=== PATIENT | male | born 1950 | race Caucasian/White ===

== ENCOUNTER → 2017-07-05 | Outpatient (CLI) | payer OTHER ==
[~2017-07-05] MED LIST: ALBIPROI INH; ALBU3IS INH; ALBU90OI INH; AMLO5 PO; ATOR10 PO; AZIT250 PO; Advair Hfa 230-12 GM; Albuterol2.5 MG/0.5 INH; BENZ100A; BENZ100A PO; BUME1; BUME1 PO; BUME2 PO; CLON.1 PO; CODACE30; CODACE30 PO; CYCL10 PO; DIGO.25; DIGO.25 PO; DOCU100 PO; DOXY100 PO; DULO30; DULO60 PO; Desyrel PO; ELIQUIS5 MG PO; FISH1000 PO; FLUSAL2505; FLUSAL2505 INH; FOSI10; FURO80; FURO80 PO; Ferrous Sulfat325 MG PO; GABA100 PO; GABA300 PO; GLIP10 PO; GLIP5ER PO; HYDACE5; HYDACE5 PO; HYDACE5325 PO; HYDR1TAB94 PO; LEVFLO500 PO; LEVO750 PO; LISI20 PO; LISINOPRIL; LOVASTA; Levaquin500 MG PO; MELO7.5; MELO7.5 PO; METF500; METF500 PO; METF500C PO; METH10; METH10 PO; METH5 PO; METO10 PO; METO100 PO; METO100ER; MONT10T; MONT10T PO; MORP15ER PO; Methadone PO; Metoprolol Tar100 MG PO; Mucinex600 MG PO; NEOPOLHYDS OT; NIFE90ER PO; NYST100SU MT; Neurontin300 MG PO; OMEG1CAP30 PO; OXYC5 PO; POTCHL10ER; POTCHL10ER PO; PRED10 PO; PRED20 PO; PROC10 PO; PROM25 PO; PROM25S PR; Prinivil10 MG PO; ROFE25; SERT100; TAMS.4ER PO; TIOT18 INH; TRAM50 PO; TRAZ100; TRAZ100 PO; TRAZ150T57 PO; VERA120; WARF3; WARF3 PO; WARF4 PO; Zithromax250 MG PO; Zofran Odt8 MG SL
[2017-07-05 14:13] LABS: Albumin, Blood 3.3 g/dL (3.4-5.0); Anion Gap 7 mmol/L (6-16); Blood Urea Nitrogen 27 mg/dL (8-24); Bun/Creatinine Ratio 24.5 (12.0-20.0); CO2, Blood 31 mmol/L (21-32); Calcium, Blood 8.6 mg/dL (8.5-10.1); Chloride, Blood 100 mmol/L (98-108); Glomerular Filtration Rate >60 (60-); Glucose, Blood 240 mg/dL (70-99); Phosphorus, Blood 3.1 mg/dL (2.5-4.9); Potassium, Blood 4.7 mmol/L (3.5-5.5); Sodium, Blood 138 mmol/L (136-145)
== END | disposition home or self-care (01) ==
LOC: LAB 13:29
PROVIDERS: Internal Medicine Nephrology
DX: N18.3 Chronic kidney disease, stage 3 (moderate) (principal); D63.1 Anemia in chronic kidney disease
CPT/HCPCS: 80069; 85018

== ENCOUNTER 2017-07-22 09:13 | Emergency (ER) | payer OTHER ==
[~2017-07-22] VITALS: Ht 180.3 cm; Wt 136.1 kg
[~2017-07-22 09:13] MED LIST changes: -Advair Hfa 230-12 GM; -Ferrous Sulfat325 MG PO; -OXYC5 PO; -Zofran Odt8 MG SL
[2017-07-22 09:44] LABS: Hemoglobin 11.3 g/dL (13.5-17.5); NRBC ABSOLUTE 0.03 K/mm3 (0.00-0.02); NRBC Auto 0.2 /100 WBC (0.0-0.2); Platelet Count 610 K/mm3 (150-400); White Blood Cell Count 15.62 K/mm3 (4.00-11.30)
[2017-07-22 09:47] LABS: Hematocrit 36.6 % (37.0-53.0); Mean Corpuscular HGB 27.8 pg (26.0-34.0); Mean Corpuscular HGB Conc 30.9 g/dL (31.5-36.5); Mean Corpuscular Volume 90 fL (80-100); RDW Coefficient Variation 26.9 % (11.7-14.2); RDW Standard Deviation 86.7 fL (35.1-46.3); Red Blood Cell Count 4.07 M/mm3 (4.30-5.90)
[2017-07-22 10:03] LABS: Alanine Aminotransfer (ALT/SGP 22 U/L (12-78); Albumin, Blood 3.6 g/dL (3.4-5.0); Albumin/Globulin Ratio 0.6 (0.8-1.8); Alk Phos 62 U/L (50-136); Anion Gap 7 mmol/L (6-16); Aspartate Aminotrans (AST/SGOT 14 U/L (12-37); Bilirubin, Total 1.4 mg/dL (0.1-1.0); Blood Urea Nitrogen 22 mg/dL (8-24); Bun/Creatinine Ratio 21.6 (12.0-20.0); CO2, Blood 32 mmol/L (21-32); Chloride, Blood 98 mmol/L (98-108); Creatinine, Blood 1.02 mg/dL (0.60-1.20); Globulin, Blood 5.6 g/dL (2.2-4.0); Glomerular Filtration Rate >60 (60-); Glucose, Blood 207 mg/dL (70-99); Potassium, Blood 3.4 mmol/L (3.5-5.5); Sodium, Blood 137 mmol/L (136-145); Total Protein, Blood 9.2 g/dL (6.4-8.2)
[2017-07-22 10:34] LABS: BAND PERCENT MAN 5 % (0-8); BASOPHILS PERCENT MAN 0 % (0-2); EOSINOPHILS ABSOLUTE MAN 0.15 K/mm3 (0.00-0.68); EOSINOPHILS PERCENT MAN 1 % (0-6); LYMPHOCYTES % ATYPICAL MANUAL 3 % (0-0); LYMPHOCYTES ABSOLUTE MAN 1.87 K/mm3 (0.84-5.20); LYMPHOCYTES PERCENT MAN 9 % (21-46); MONOCYTES ABSOLUTE MAN 0.46 K/mm3 (0.16-1.47); MONOCYTES PERCENT MAN 3 % (4-13); NEUTROPHILS ABSOLUTE MAN 13.12 K/mm3 (1.96-9.15); SEG NEUTROPHILS PERCENT MAN 79 % (41-73); TOTAL CELLS COUNTED 100
[2017-07-22] MEDS ORDERED: OXYC5 PO (10:36)
[2017-07-22] MEDS ORDERED: Advair Hfa 230-12 GM (10:39)
[2017-07-22] MEDS ORDERED: Ferrous Sulfat325 MG PO (10:45)
[2017-07-22 10:58] LABS: Source, Urine Catheter
[2017-07-22 11:09] LABS: Bilirubin, Urine Neg (Neg); Blood, Urine 2+ (Neg); Glucose Qualitative, Urine Neg (Neg); Ketones, Urine Neg (Neg); Leukocyte Esterase, Urine Neg (Neg); Nitrite, Urine Neg (Neg); Protein, Urine 2+ (Neg); Urobilinogen, Urine NORM (Normal)
[2017-07-22 11:23] LABS: Appearance, Urine Hazy (Clear); Color, Urine Yellow (P-Yellow)
[2017-07-22 11:25] LABS: Granular Casts 0-2 /lpf (0)
[2017-07-22 11:26] LABS: Amorphous Light (0-Heavy)
[2017-07-22 11:27] LABS: Bacteria Few /hpf; Squamous Epithelial Cells Rare /hpf (Few); White Blood Cells, Urine Not Seen /hpf (0-5)
[2017-07-22] MEDS ORDERED: Zofran Odt8 MG SL (11:29)
== END 2017-07-22 12:00 | disposition home or self-care (01) ==
LOC: ER 09:13
PROVIDERS: Emergency Medicine
DX: K52.9 Noninfective gastroenteritis and colitis, unspecified (principal); Z88.5 Allergy status to narcotic agent; Z88.1 Allergy status to other antibiotic agents; Z79.899 Other long term (current) drug therapy; Z79.891 Long term (current) use of opiate analgesic; Z79.52 Long term (current) use of systemic steroids; Z79.2 Long term (current) use of antibiotics; I48.91 Unspecified atrial fibrillation; I11.0 Hypertensive heart disease with heart failure; I50.9 Heart failure, unspecified; E11.40 Type 2 diabetes mellitus with diabetic neuropathy, unspecified
CPT/HCPCS: 36415; 80053; 81001; 83690; 85025; 96374; 96375; 99284; J0780; J2270; J2405

== ENCOUNTER → 2017-09-01 | Outpatient (CLI) | payer OTHER ==
[~2017-09-01] MED LIST changes: +Advair Hfa 230-12 GM; +Ferrous Sulfat325 MG PO; +OXYC5 PO; +Zofran Odt8 MG SL
[2017-09-01 18:29] LABS: Percent Saturation 33.2 % (20.0-50.0)
[2017-09-01 19:06] LABS: Albumin, Blood 3.2 g/dL (3.4-5.0); Anion Gap 5 mmol/L (6-16); Blood Urea Nitrogen 28 mg/dL (8-24); Bun/Creatinine Ratio 22.8 (12.0-20.0); CO2, Blood 31 mmol/L (21-32); Calcium, Blood 8.7 mg/dL (8.5-10.1); Chloride, Blood 101 mmol/L (98-108); Creatinine, Blood 1.23 mg/dL (0.60-1.20); Glomerular Filtration Rate >60 (60-); Glucose, Blood 199 mg/dL (70-99); Phosphorus, Blood 2.6 mg/dL (2.5-4.9); Potassium, Blood 3.9 mmol/L (3.5-5.5); Sodium, Blood 137 mmol/L (136-145)
== END ==
LOC: LAB 13:30
PROVIDERS: Internal Medicine Nephrology
DX: N18.2 Chronic kidney disease, stage 2 (mild) (principal); D63.1 Anemia in chronic kidney disease; N25.81 Secondary hyperparathyroidism of renal origin; E55.9 Vitamin D deficiency, unspecified
CPT/HCPCS: 80069; 82607; 82728; 82746; 83540; 83550; 85018

== ENCOUNTER → 2017-09-16 | Outpatient (CLI) | payer OTHER ==
[2017-09-16 18:44] LABS: Alanine Aminotransfer (ALT/SGP 14 U/L (12-78); Albumin, Blood 3.4 g/dL (3.4-5.0); Albumin/Globulin Ratio 0.7 (0.8-1.8); Alk Phos 69 U/L (50-136); Anion Gap 7 mmol/L (6-16); Aspartate Aminotrans (AST/SGOT 21 U/L (12-37); Bilirubin, Total 0.7 mg/dL (0.1-1.0); Blood Urea Nitrogen 31 mg/dL (8-24); CO2, Blood 31 mmol/L (21-32); Calcium, Blood 8.9 mg/dL (8.5-10.1); Chloride, Blood 102 mmol/L (98-108); Creatinine, Blood 1.29 mg/dL (0.60-1.20); Globulin, Blood 4.7 g/dL (2.2-4.0); Glomerular Filtration Rate 59 (60-); Glucose, Blood 224 mg/dL (70-99); Potassium, Blood 4.4 mmol/L (3.5-5.5); Sodium, Blood 140 mmol/L (136-145); Total Protein, Blood 8.1 g/dL (6.4-8.2)
[2017-09-20 13:05] LABS: Albumin 3.6 g/dL (3.3-4.8); Albumin 45.8 % (45.0-80.0); Monoclonal Protein 1.6 g/dL; Monoclonal Protien % 19.8 %; Protein, Total 7.9 g/dL (6.1-7.8)
== END ==
LOC: LAB SHORT 16:58 → LAB 16:58
PROVIDERS: Internal Medicine Hematology & Oncology
DX: Z12.5 Encounter for screening for malignant neoplasm of prostate (principal); C90.00 Multiple myeloma not having achieved remission
CPT/HCPCS: 36415; 80053; 83883; 84165; 86334; G0103

== ENCOUNTER → 2017-09-22 | Outpatient (CLI) | payer OTHER ==
[2017-09-22 16:59] LABS: PSA, Free 0.672 ng/mL
== END | disposition home or self-care (01) ==
LOC: LAB SHORT 12:00 → LAB 12:00
PROVIDERS: Internal Medicine Hematology & Oncology
DX: R97.20 Elevated prostate specific antigen [PSA] (principal)
CPT/HCPCS: 84153; 84154

== ENCOUNTER → 2019-03-21 | Outpatient (CLI) | payer OTHER ==
[2019-03-21 19:29] LABS: Appearance, Urine Cloudy (Clear); Bilirubin, Urine Neg (Neg); Blood, Urine Neg (Neg); Color, Urine Yellow (P-Yellow); Glucose Qualitative, Urine Neg (Neg); Ketones, Urine Neg (Neg); Leukocyte Esterase, Urine Neg (Neg); Nitrite, Urine Neg (Neg); Protein, Urine 1+ (Neg); Urobilinogen, Urine 2+ (Normal)
[2019-03-21 19:41] LABS: Bacteria Many /hpf; Red Blood Cells, Urine 0-2 /hpf (0-2); Squamous Epithelial Cells Rare /hpf (Few); White Blood Cells, Urine 0-2 /hpf (0-5); Yeast/Fungi Urine Many /hpf
[2019-03-21 19:44] LABS: Hemoglobin 8.1 g/dL (13.5-17.5); NRBC ABSOLUTE 0.02 K/mm3 (0.00-0.02); NRBC Auto 0.2 /100 WBC (0.0-0.2); Platelet Count 450 K/mm3 (150-400); White Blood Cell Count 11.77 K/mm3 (4.00-11.30)
[2019-03-21 20:03] LABS: Hematocrit 26.9 % (37.0-53.0); Mean Corpuscular HGB 28.3 pg (26.0-34.0); Mean Corpuscular HGB Conc 30.1 g/dL (31.5-36.5); Mean Corpuscular Volume 94 fL (80-100); RDW Coefficient Variation 33.2 % (11.7-14.2); Red Blood Cell Count 2.86 M/mm3 (4.30-5.90)
[2019-03-21 20:32] LABS: Alanine Aminotransfer (ALT/SGP 10 U/L (12-78); Albumin, Blood 3.5 g/dL (3.4-5.0); Albumin/Globulin Ratio 0.8 (0.8-1.8); Alk Phos 67 U/L (50-136); Anion Gap 3 mmol/L (6-16); Aspartate Aminotrans (AST/SGOT 7 U/L (12-37); Bilirubin, Total 0.8 mg/dL (0.1-1.0); Blood Urea Nitrogen 15 mg/dL (8-24); Bun/Creatinine Ratio 16.1 (12.0-20.0); CHOL/HDL RATIO 3.2; CO2, Blood 29 mmol/L (21-32); Calcium, Blood 8.8 mg/dL (8.5-10.1); Chloride, Blood 106 mmol/L (98-108); Cholesterol 117 mg/dL (50-200); Creatinine, Blood 0.93 mg/dL (0.60-1.20); Globulin, Blood 4.6 g/dL (2.2-4.0); Glomerular Filtration Rate >60 (60-); Glucose, Blood 145 mg/dL (70-99); HDL Cholesterol 37 mg/dL (>39); LDL/HDL RATIO 1.8; Low Density Lipoprotein Chol 68 mg/dL (0-110); Potassium, Blood 4.4 mmol/L (3.5-5.5); Sodium, Blood 138 mmol/L (136-145); Thyroid Stimulating Hormone 0.668 uIU/mL (0.360-4.800); Total Protein, Blood 8.1 g/dL (6.4-8.2); Triglycerides 59 mg/dL (30-160); Very Low Density Lipoprot Chol 11 mg/dL (6-32)
[2019-03-22 17:44] LABS: U Amphetamine Screen Not Detected; U Barbituate Screen Not Detected; U Benzodiazapine Screen DETECTED; U Buprenorphine Screen Not Detected; U Cannabinoids Screen DETECTED; U Cocaine Screen Not Detected; U Methadone Screen Not Detected; U Methamphetamine Screen Not Detected; U Opiates Screen DETECTED; U Oxycodone Screen DETECTED; U Phencyclidine Screen Not Detected; U Propoxyphene Screen Not Detected
== END | disposition home or self-care (01) ==
LOC: LAB SHORT 18:36 → LAB 18:36
PROVIDERS: Family Medicine
DX: Z51.81 Encounter for therapeutic drug level monitoring (principal); C90.00 Multiple myeloma not having achieved remission; D63.0 Anemia in neoplastic disease; E11.9 Type 2 diabetes mellitus without complications; I50.22 Chronic systolic (congestive) heart failure; F11.10 Opioid abuse, uncomplicated; M25.511 Pain in right shoulder; Z79.899 Other long term (current) drug therapy
CPT/HCPCS: 80053; 80061; 81001; 83036; 84443; 85027; 87086; 87106

== ENCOUNTER → 2019-05-19 | Outpatient (CLI) | payer OTHER ==
[~2019-05-19] MED LIST changes: +CLON.5 PO; +IBUP400 PO; +LACT10SY PO; +LISI5 PO; +LORA1 PO; +METO50 PO; -Metoprolol Tar100 MG PO; +OXYC30ER PO; -OXYC5 PO
[2019-05-19 12:58] LABS: BASOPHILS ABSOLUTE AUTO 0.03 K/mm3 (0.00-0.23); BASOPHILS PERCENT AUTO 0 % (0-2); EOSINOPHILS ABSOLUTE AUTO 0.68 K/mm3 (0.00-0.68); EOSINOPHILS PERCENT AUTO 6 % (0-6); Hemoglobin 7.2 g/dL (13.5-17.5); IMMATURE GRAN ABSOLUTE AUTO 0.09 K/mm3 (0.00-0.10); IMMATURE GRAN PERCENT AUTO 1 % (0-1); LYMPHOCYTES ABSOLUTE AUTO 3.02 K/mm3 (0.84-5.20); LYMPHOCYTES PERCENT AUTO 26 % (21-46); MONOCYTES ABSOLUTE AUTO 0.56 K/mm3 (0.16-1.47); MONOCYTES PERCENT AUTO 5 % (4-13); Mean Platelet Volume 10.2 fL (9.1-12.4); NEUTROPHILS ABSOLUTE AUTO 7.29 K/mm3 (1.96-9.15); NEUTROPHILS PERCENT AUTO 62 % (41-73); NRBC ABSOLUTE 0.03 K/mm3 (0.00-0.02); NRBC Auto 0.3 /100 WBC (0.0-0.2); Platelet Count 390 K/mm3 (150-400); White Blood Cell Count 11.67 K/mm3 (4.00-11.30)
[2019-05-19 13:00] LABS: Percent Saturation 26.7 % (20.0-50.0)
[2019-05-19 13:05] LABS: Hematocrit 24.1 % (37.0-53.0); Mean Corpuscular HGB 27.8 pg (26.0-34.0); Mean Corpuscular HGB Conc 29.9 g/dL (31.5-36.5); Mean Corpuscular Volume 93 fL (80-100); Red Blood Cell Count 2.59 M/mm3 (4.30-5.90)
[2019-05-19 13:06] LABS: RDW Coefficient Variation 33.4 % (11.7-14.2); RETICULOCYTE ABSOLUTE 0.0264 M/mm3 (0.0200-0.1100); RETICULOCYTE COUNT PERCENT 1.02 % (0.50-2.50)
== END | disposition home or self-care (01) ==
LOC: LAB SHORT 12:01 → LAB 12:01
PROVIDERS: Family Medicine
DX: D50.8 Other iron deficiency anemias (principal); Z79.899 Other long term (current) drug therapy
CPT/HCPCS: 82607; 82728; 82746; 83540; 83550; 85025; 85045

== ENCOUNTER 2019-05-22 12:43 | Emergency (ER) | payer OTHER ==
[~2019-05-22] VITALS: Ht 180.3 cm; Wt 124.7 kg
[~2019-05-22 12:43] MED LIST changes: -CLON.5 PO; -IBUP400 PO; -LACT10SY PO; -LORA1 PO
[2019-05-22] MEDS ORDERED: LACT10SY PO (13:08)
[2019-05-22] MEDS ORDERED: LORA1 PO (13:10)
[2019-05-22] MEDS ORDERED: IBUP400 PO (13:11)
[2019-05-22] MEDS ORDERED: CLON.5 PO (13:12)
[2019-05-22 13:23] LABS: BASOPHILS ABSOLUTE AUTO 0.02 K/mm3 (0.00-0.23); BASOPHILS PERCENT AUTO 0 % (0-2); EOSINOPHILS ABSOLUTE AUTO 0.66 K/mm3 (0.00-0.68); EOSINOPHILS PERCENT AUTO 6 % (0-6); Hemoglobin 7.1 g/dL (13.5-17.5); IMMATURE GRAN ABSOLUTE AUTO 0.06 K/mm3 (0.00-0.10); IMMATURE GRAN PERCENT AUTO 1 % (0-1); LYMPHOCYTES ABSOLUTE AUTO 2.53 K/mm3 (0.84-5.20); LYMPHOCYTES PERCENT AUTO 25 % (21-46); MONOCYTES ABSOLUTE AUTO 0.56 K/mm3 (0.16-1.47); MONOCYTES PERCENT AUTO 5 % (4-13); Mean Platelet Volume 11.3 fL (9.1-12.4); NEUTROPHILS ABSOLUTE AUTO 6.49 K/mm3 (1.96-9.15); NEUTROPHILS PERCENT AUTO 63 % (41-73); NRBC ABSOLUTE 0.03 K/mm3 (0.00-0.02); NRBC Auto 0.3 /100 WBC (0.0-0.2); Platelet Count 413 K/mm3 (150-400); White Blood Cell Count 10.32 K/mm3 (4.00-11.30)
[2019-05-22 13:36] LABS: Alanine Aminotransfer (ALT/SGP 11 U/L (12-78); Albumin, Blood 3.5 g/dL (3.4-5.0); Albumin/Globulin Ratio 0.8 (0.8-1.8); Alk Phos 59 U/L (50-136); Anion Gap 5 mmol/L (6-16); Aspartate Aminotrans (AST/SGOT 8 U/L (12-37); Bilirubin, Total 0.8 mg/dL (0.1-1.0); Blood Urea Nitrogen 18 mg/dL (8-24); CO2, Blood 28 mmol/L (21-32); Calcium, Blood 8.7 mg/dL (8.5-10.1); Chloride, Blood 106 mmol/L (98-108); Globulin, Blood 4.4 g/dL (2.2-4.0); Glomerular Filtration Rate >60 (60-); Glucose, Blood 164 mg/dL (70-99); Potassium, Blood 4.1 mmol/L (3.5-5.5); Sodium, Blood 139 mmol/L (136-145); Total Protein, Blood 7.9 g/dL (6.4-8.2)
[2019-05-22 13:45] LABS: Hematocrit 23.8 % (37.0-53.0); Mean Corpuscular HGB 28.7 pg (26.0-34.0); Mean Corpuscular HGB Conc 29.8 g/dL (31.5-36.5); Mean Corpuscular Volume 96 fL (80-100); RDW Coefficient Variation 34.4 % (11.7-14.2); Red Blood Cell Count 2.47 M/mm3 (4.30-5.90)
[2019-05-24 10:58] LABS: Phosphorus, Blood 3.7 mg/dL (2.5-4.9)
== END 2019-05-22 19:13 | disposition home or self-care (01) ==
LOC: ER 12:43
PROVIDERS: Emergency Medicine
DX: D64.9 Anemia, unspecified (principal); I11.0 Hypertensive heart disease with heart failure; I50.9 Heart failure, unspecified; E11.40 Type 2 diabetes mellitus with diabetic neuropathy, unspecified; J44.9 Chronic obstructive pulmonary disease, unspecified; I48.91 Unspecified atrial fibrillation; Z88.5 Allergy status to narcotic agent; Z88.1 Allergy status to other antibiotic agents; Z79.899 Other long term (current) drug therapy; Z79.01 Long term (current) use of anticoagulants; Z79.84 Long term (current) use of oral hypoglycemic drugs; Z79.51 Long term (current) use of inhaled steroids
CPT/HCPCS: 36415; 36430; 80053; 84100; 85025; 86850; 86900; 86901; 86923; 99283-25; J7030; P9016

== ENCOUNTER → 2019-05-26 | Outpatient (CLI) | payer OTHER ==
[~2019-05-26] MED LIST changes: +CLON.5 PO; +IBUP400 PO; +LACT10SY PO; +LORA1 PO
[2019-05-26 19:13] LABS: BASOPHILS ABSOLUTE AUTO 0.02 K/mm3 (0.00-0.23); BASOPHILS PERCENT AUTO 0 % (0-2); EOSINOPHILS ABSOLUTE AUTO 0.54 K/mm3 (0.00-0.68); EOSINOPHILS PERCENT AUTO 5 % (0-6); Hemoglobin 8.2 g/dL (13.5-17.5); IMMATURE GRAN ABSOLUTE AUTO 0.03 K/mm3 (0.00-0.10); IMMATURE GRAN PERCENT AUTO 0 % (0-1); LYMPHOCYTES ABSOLUTE AUTO 2.22 K/mm3 (0.84-5.20); LYMPHOCYTES PERCENT AUTO 21 % (21-46); MONOCYTES ABSOLUTE AUTO 0.54 K/mm3 (0.16-1.47); MONOCYTES PERCENT AUTO 5 % (4-13); NEUTROPHILS PERCENT AUTO 68 % (41-73); NRBC ABSOLUTE 0.02 K/mm3 (0.00-0.02); NRBC Auto 0.2 /100 WBC (0.0-0.2); Platelet Count 412 K/mm3 (150-400); White Blood Cell Count 10.55 K/mm3 (4.00-11.30)
[2019-05-26 19:30] LABS: Mean Corpuscular HGB 28.9 pg (26.0-34.0); Mean Corpuscular HGB Conc 30.4 g/dL (31.5-36.5); Mean Corpuscular Volume 95 fL (80-100); RDW Coefficient Variation 33.4 % (11.7-14.2); Red Blood Cell Count 2.84 M/mm3 (4.30-5.90)
== END ==
LOC: LAB SHORT 13:55 → LAB 13:55
PROVIDERS: Family Medicine
DX: D64.9 Anemia, unspecified (principal); D50.9 Iron deficiency anemia, unspecified
CPT/HCPCS: 85025

== ENCOUNTER → 2019-05-27 | Outpatient (CLI) | payer OTHER ==
[2019-05-27 15:57] LABS: Anion Gap 3 mmol/L (6-16); Blood Urea Nitrogen 24 mg/dL (8-24); Bun/Creatinine Ratio 25.9 (12.0-20.0); CO2, Blood 28 mmol/L (21-32); Calcium, Blood 8.4 mg/dL (8.5-10.1); Chloride, Blood 105 mmol/L (98-108); Creatinine, Blood 0.93 mg/dL (0.60-1.20); Glomerular Filtration Rate >60 (60-); Glucose, Blood 306 mg/dL (70-99); Potassium, Blood 4.3 mmol/L (3.5-5.5); Sodium, Blood 136 mmol/L (136-145)
== END | disposition home or self-care (01) ==
LOC: OLS 12:01 → LAB SHORT 12:01
PROVIDERS: Family Medicine
DX: I50.22 Chronic systolic (congestive) heart failure (principal); G51.0 Bell's palsy; E11.9 Type 2 diabetes mellitus without complications; C80.1 Malignant (primary) neoplasm, unspecified; D63.0 Anemia in neoplastic disease
CPT/HCPCS: 36415; 80048

== ENCOUNTER → 2019-06-15 | Outpatient (CLI) | payer OTHER ==
[2019-06-19 17:06] LABS: ALBUMIN 3.8 g/dL (2.9-4.4); ALPHA-1-GLOBULIN 0.2 g/dL (0.0-0.4); ALPHA-2-GLOBULIN 0.7 g/dL (0.4-1.0); BETA GLOBULIN 0.9 g/dL (0.7-1.3); GAMMA GLOBULIN 1.9 g/dL (0.4-1.8); GLOBULIN, TOTAL 3.7 g/dL (2.2-3.9); M-SPIKE 1.4 g/dL (Not Observed); PROTEIN, TOTAL, SERUM 7.5 g/dL (6.0-8.5)
[2019-06-20 13:07] LABS: M-SPIKE, % 22.4 % (Not Observed); PROTEIN,TOTAL,URINE 179.8 mg/dL (Not Estab.)
[2019-06-21 05:08] LABS: BETA-2 MICROGLOBULIN, SERUM 5.3 mg/L (0.6-2.4)
== END | disposition home or self-care (01) ==
LOC: LAB 11:20 → LAB SHORT 11:20
PROVIDERS: Family Medicine
DX: C90.00 Multiple myeloma not having achieved remission (principal)
CPT/HCPCS: 82232; 83615; 84156; 84165; 84166

== ENCOUNTER 2019-10-16 19:26 | Inpatient (IN) | payer OTHER ==
[~2019-10-16] VITALS: Ht 185.4 cm; Wt 117.3 kg
[~2019-10-16 19:26] MED LIST changes: -AMLO5 PO; -CLON.5 PO; -ELIQUIS5 MG PO; -GABA300 PO; -IBUP400 PO; -LISI5 PO; -LORA1 PO; -METO50 PO; -OXYC30ER PO; -TRAZ150T57 PO
[2019-10-16 19:46] LABS: PCO2 Arterial 36.9 mmHg (35-45); PO2 Arterial 48.7 mmHg (80-100); pH Blood Arterial 7.37 (7.35-7.45)
[2019-10-16 19:46] LABS: NRBC ABSOLUTE 0.03 K/mm3 (0.00-0.02); NRBC Auto 0.1 /100 WBC (0.0-0.2); Platelet Count 329 K/mm3 (150-400)
[2019-10-16 19:49] LABS: Hematocrit 19.9 % (37.0-53.0); Red Blood Cell Count 2.09 M/mm3 (4.30-5.90)
[2019-10-16 19:54] LABS: Hemoglobin 5.9 g/dL (13.5-17.5)
[2019-10-16 20:04] LABS: BAND PERCENT MAN 15 % (0-8); BASOPHILS PERCENT MAN 0 % (0-2); EOSINOPHILS PERCENT MAN 0 % (0-6); LYMPHOCYTES ABSOLUTE MAN 1.55 K/mm3 (0.84-5.20); LYMPHOCYTES PERCENT MAN 4 % (21-46); METAMYELOCYTE ABSOLUTE MAN 1.16 K/mm3 (0.00-0.00); METAMYELOCYTE PERCENT MAN 3 % (0-0); MONOCYTES ABSOLUTE MAN 0.77 K/mm3 (0.16-1.47); MONOCYTES PERCENT MAN 2 % (4-13); NEUTROPHILS ABSOLUTE MAN 35.39 K/mm3 (1.96-9.15); SEG NEUTROPHILS PERCENT MAN 76 % (41-73); TOTAL CELLS COUNTED 100
[2019-10-16 20:06] LABS: Magnesium, Blood 1.9 mg/dL (1.6-2.4); Troponin I <0.015 ng/mL (0.000-0.040)
[2019-10-16 20:07] LABS: Alanine Aminotransfer (ALT/SGP 10 U/L (12-78); Albumin, Blood 2.9 g/dL (3.4-5.0); Albumin/Globulin Ratio 0.5 (0.8-1.8); Alk Phos 54 U/L (50-136); Anion Gap 8 mmol/L (6-16); Aspartate Aminotrans (AST/SGOT 10 U/L (12-37); Bilirubin, Total 0.9 mg/dL (0.1-1.0); Blood Urea Nitrogen 52 mg/dL (8-24); Bun/Creatinine Ratio 17.4 (12.0-20.0); CO2, Blood 22 mmol/L (21-32); Calcium, Blood 8.6 mg/dL (8.5-10.1); Chloride, Blood 111 mmol/L (98-108); Creatinine, Blood 2.98 mg/dL (0.60-1.20); Glomerular Filtration Rate 22 (60-); Glucose, Blood 210 mg/dL (70-99); Potassium, Blood 4.1 mmol/L (3.5-5.5); Sodium, Blood 141 mmol/L (136-145); Total Protein, Blood 8.9 g/dL (6.4-8.2)
[2019-10-16 20:30] LABS: Calcium, Ionized (POC) 1.23 mmol/L (1.10-1.46); Chloride (POC) 108 mmol/L (98-108); Creatinine (POC) 3.4 mg/dL (0.8-1.3); Glucose (ISTAT POC) 220 mg/dL (70-99); Hemoglobin (POC) 7.8 g/dL (13.5-17.5); Potassium (POC) 3.8 mmol/L (3.5-5.5); Sodium (POC) 142 mmol/L (135-148); Total CO2 (POC) 20 mmol/L (21-32)
[2019-10-16] MEDS ORDERED: DULO60 PO (20:41)
[2019-10-16] MEDS ORDERED: METO50 PO (20:41)
[2019-10-16] MEDS ORDERED: TRAZ150T57 PO (20:42)
[2019-10-16] MEDS ORDERED: LISI5 PO (20:42)
[2019-10-16] MEDS ORDERED: GABA300 PO (20:42)
[2019-10-16] MEDS ORDERED: AMLO5 PO (20:42)
[2019-10-16] MEDS ORDERED: LORA1 PO (20:43)
[2019-10-16] MEDS ORDERED: ELIQUIS5 MG PO (20:43)
[2019-10-16] MEDS ORDERED: IBUP400 PO (20:44)
[2019-10-16] MEDS ORDERED: CLON.5 PO (20:44)
[2019-10-16] MEDS ORDERED: OXYC10TA19 PO (20:49)
[2019-10-16 21:18] LABS: Mean Corpuscular HGB 28.8 pg (26.0-34.0); Mean Corpuscular HGB Conc 29.6 g/dL (31.5-36.5)
[2019-10-16 21:21] LABS: Mean Corpuscular Volume 95 fL (80-100)
[2019-10-16 22:16] LABS: Source, Urine Catheter
[2019-10-16 22:18] LABS: Bilirubin, Urine Neg (Neg); Blood, Urine 3+ (Neg); Glucose Qualitative, Urine Neg (Neg); Ketones, Urine Neg (Neg); Leukocyte Esterase, Urine 2+ (Neg); Nitrite, Urine Neg (Neg); Protein, Urine 3+ (Neg); Urobilinogen, Urine NORM (Normal)
[2019-10-16 22:25] LABS: Appearance, Urine Clear (Clear); Color, Urine Yellow (P-Yellow)
[2019-10-16 22:26] LABS: Bacteria Mod /hpf; Red Blood Cells, Urine 0-2 /hpf (0-2); Squamous Epithelial Cells Few /hpf (Few); White Blood Cells, Urine 25-50 /hpf (0-5)
[2019-10-16 22:32] LABS: U Amphetamine Screen Not Detected; U Barbituate Screen Not Detected; U Benzodiazapine Screen DETECTED; U Buprenorphine Screen Not Detected; U Cannabinoids Screen DETECTED; U Cocaine Screen Not Detected; U Methadone Screen Not Detected; U Methamphetamine Screen Not Detected; U Opiates Screen Not Detected; U Oxycodone Screen DETECTED; U Phencyclidine Screen Not Detected; U Propoxyphene Screen Not Detected
[2019-10-17 01:08] LABS: Adenovirus Not Detected (NOT DETECT); Bordetella pertussis Not Detected (NOT DETECT); Chlamydophila pneumoniae Not Detected (NOT DETECT); Coronavirus 229E Not Detected (NOT DETECT); Coronavirus HKU1 Not Detected (NOT DETECT); Coronavirus NL63 Not Detected (NOT DETECT); Coronavirus OC43 Not Detected (NOT DETECT); Human Metapneumovirus Not Detected (NOT DETECT); Human Rhinovirus/Enterovirus Not Detected (NOT DETECT); Influenza A/2009-H1 Not Detected (NOT DETECT); Influenza A/H1 Not Detected (NOT DETECT); Influenza A/H3 Not Detected (NOT DETECT); Influenza B Not Detected (NOT DETECT); Mycoplasma pneumoniae Not Detected (NOT DETECT); Parainfluenza Virus 1 Not Detected (NOT DETECT); Parainfluenza Virus 2 Not Detected (NOT DETECT); Parainfluenza Virus 3 Not Detected (NOT DETECT); Parainfluenza Virus 4 Not Detected (NOT DETECT); Respiratory Syncytial Virus Not Detected (NOT DETECT)
--- NOTE | 2019-10-17 06:00 | NUR ---
RECEIVED ED ADMIT AT 0015. LETHARGIC BUT CONVERSING W/ ORIENTATION. MOANS OCC HE DEMANDS H2O. AND WHEN CLEANSING SKIN EXCORIATED BUTTOCK AND PT REVIEWS SEDENTARY LIFE STYLE AND ATTEMPTS TO TAKE CARE OF WOUNDS. SEE OTHER PHOTOS. NO ACUTE PAIN BUT VERY FRUSSTRATED NO FAMILY HERE AND HE NEEDS TO EAT AND DRINK AND HE WOULD LIKE TO GET HOME [facility]. COVID R/O AND REVIEWED SAFETY AND EQUIPTMENT TO EXPECT. EXPRESSES UNDERSTANDING.CALMING AND DOZING. LUNGS W/ SOME COARSE SOUNDS IN RT LOWER LUNG SALAZAR. SAME T/O NOC POST 2 UNITS OF BLOOD. LOOSE COUGH. AF HR 90-110. CHRONIC ESTEBAN HAD BEEN CHANGED IN ED AND UA SENT AT THAT TIME. REPOSITIONED SIDE TO SIDE ALL NOC. O X 3 .
[2019-10-17 06:28] LABS: Hemoglobin 7.6 g/dL (13.5-17.5); NRBC ABSOLUTE 0.03 K/mm3 (0.00-0.02); NRBC Auto 0.1 /100 WBC (0.0-0.2); Platelet Count 298 K/mm3 (150-400); White Blood Cell Count 32.06 K/mm3 (4.00-11.30)
[2019-10-17 06:43] LABS: Bun/Creatinine Ratio 18.4 (12.0-20.0); Calcium, Blood 8.7 mg/dL (8.5-10.1); Creatinine, Blood 2.83 mg/dL (0.60-1.20); Potassium, Blood 3.8 mmol/L (3.5-5.5)
[2019-10-17 07:06] LABS: Hematocrit 24.1 % (37.0-53.0); Mean Corpuscular HGB 29.6 pg (26.0-34.0); Mean Corpuscular HGB Conc 31.5 g/dL (31.5-36.5); Mean Corpuscular Volume 94 fL (80-100); RDW Coefficient Variation 32.2 % (11.7-14.2); RDW Standard Deviation 110.6 fL (35.1-46.3); Red Blood Cell Count 2.57 M/mm3 (4.30-5.90)
[2019-10-17 07:08] LABS: BAND PERCENT MAN 8 % (0-8); BASOPHILS PERCENT MAN 0 % (0-2); EOSINOPHILS ABSOLUTE MAN 0.32 K/mm3 (0.00-0.68); EOSINOPHILS PERCENT MAN 1 % (0-6); LYMPHOCYTES ABSOLUTE MAN 0.32 K/mm3 (0.84-5.20); LYMPHOCYTES PERCENT MAN 1 % (21-46); MONOCYTES ABSOLUTE MAN 0.32 K/mm3 (0.16-1.47); MONOCYTES PERCENT MAN 1 % (4-13); NEUTROPHILS ABSOLUTE MAN 31.09 K/mm3 (1.96-9.15); SEG NEUTROPHILS PERCENT MAN 89 % (41-73); TOTAL CELLS COUNTED 100
[2019-10-17 16:04] LABS: RETICULOCYTE COUNT PERCENT 0.72 % (0.50-2.50)
[2019-10-17 16:05] LABS: IMMATURE RETIC FRACTION 6.7 % (2.3-16.0); RETIC HGB EQUIVALENT 26.9 pg (28.20-36.60)
--- NOTE | 2019-10-17 18:50 | NUR ---
SHIFT SUMMARY PT HAS BEEN SLEEPING OFF AND ON THROUGH OUT THE SHIFT. PT CONFUSED AT TIMES. NO COMPLAINTS OF PAIN. PT ON 8 LITERS OXYGEN VIA OXYMIZER FROM 10 LITERS THIS AM AND TOLERATING WELL. SPEECH THERAPY IN TO SEE PT THIS AFTERNOON. PT TOLERATING PUREED DIET. PT'S BUTTOCKS EXCORIATED WITH SOME OPEN AREAS. THIS RN ENCOURAGES PT TO TURN TO STAY OF BUTTOCKS. NO ACUTE CHANGES THIS SHIFT. CALL LIGHT IN REACH. WILL CONTINUE TO MONITOR AND REPORT TO ONCOMING RN.
--- NOTE | 2019-10-17 22:11 | NUR ---
ASSUMED CARE OF PATIENT AT APPROXIMATELY 1900 FROM DELILAH Bunch RN. PATIENT CONFUSED; CALLING OUT FROM BED. PATIENT ALERT AND ORIENTED TO SELF, AND LOCATION. PATIENT CRYING WHILE STATING HE HAS NEVER BEEN AWAY FROM HIS . PATIENT REPORTS HE TAKES PAIN MEDICATION AT HOME FOR HIS ARMS; TYLENOL GIVEN; WILL CALL HOSPITALIST TO REQUEST PAIN MEDICATION. PATIENT DENIES NUMBNESS, TINGLING, DIZZINESS OR NAUSEA. PATIENT BEDFAST; TURN FREQUENTLY; MEPILEX PLACED TO COCCYX. AFIB ON TELE W/ A RATE OF 90-100; OXYGEN SATURATION ABOVE 90% ON 7.5 AT START OF SHIFT DOWN TO 6.[address] FLOW NC. [address] PRECAUTIONS; MEDS ONE AT AT TIME IN APPLESAUCE; THICKENED LIQUIDS. CHRONIC CATHETER; INCONTINENT OF STOOL SMEAR; ATTENDS IN PLACE. PIV X2 S/L. PATIENT CURRENTLY RESTING IN BED; CALL LIGHT IN REACH; BED IN LOWEST POSISTION; BED ALARM ON; WILL CONTINUE TO MONITOR AND ASSESS UNTIL END OF SHIFT.
--- NOTE | 2019-10-17 23:47 | NUR ---
CALLED [facility] AND UPDATED ON PAIN LEVEL AND PATIENT CRYING AT TIME; LOWER THAN HOME DOSE ORDERED AND LIDOCAINE PATCH ORDERED.
[2019-10-18 04:06] LABS: BASOPHILS ABSOLUTE AUTO 0.03 K/mm3 (0.00-0.23); BASOPHILS PERCENT AUTO 0 % (0-2); EOSINOPHILS ABSOLUTE AUTO 0.24 K/mm3 (0.00-0.68); EOSINOPHILS PERCENT AUTO 1 % (0-6); Hemoglobin 7.2 g/dL (13.5-17.5); IMMATURE GRAN PERCENT AUTO 1 % (0-1); LYMPHOCYTES ABSOLUTE AUTO 2.04 K/mm3 (0.84-5.20); LYMPHOCYTES PERCENT AUTO 10 % (21-46); MONOCYTES ABSOLUTE AUTO 0.61 K/mm3 (0.16-1.47); MONOCYTES PERCENT AUTO 3 % (4-13); NEUTROPHILS ABSOLUTE AUTO 16.66 K/mm3 (1.96-9.15); NEUTROPHILS PERCENT AUTO 84 % (41-73); Platelet Count 262 K/mm3 (150-400); White Blood Cell Count 19.78 K/mm3 (4.00-11.30)
[2019-10-18 04:09] LABS: Hematocrit 23.2 % (37.0-53.0); Mean Corpuscular HGB 28.8 pg (26.0-34.0); Mean Corpuscular Volume 93 fL (80-100); RDW Coefficient Variation 32.1 % (11.7-14.2); RDW Standard Deviation 110.6 fL (35.1-46.3)
[2019-10-18 04:22] LABS: Bun/Creatinine Ratio 19.4 (12.0-20.0); Calcium, Blood 8.4 mg/dL (8.5-10.1); Creatinine, Blood 2.58 mg/dL (0.60-1.20); Potassium, Blood 3.2 mmol/L (3.5-5.5)
--- NOTE | 2019-10-18 06:04 | NUR ---
PATIENT SLEPT ABOUT SEVEN HOURS LAST NIGHT. GOOD RESULTS AFTER PAIN MEDICATED AND PATCH GIVEN FOR PAIN. VSS. NO OTHER ACUTE CHANGES TO REPORT. WILL CONTINUE TO MONITOR AND ASSESS UNTIL END OF SHIFT.
--- NOTE | 2019-10-18 11:01 | NUR ---
PCT AT BEDSIDE FOR ATTENDS CHANGE. PT RESTING WELL IN BED WITH 5L O2 VIA NASAL CANNULA. SPO2 92%. BLAYNEN
--- NOTE | 2019-10-18 13:24 | NUR ---
REPORT CALLED TO ANNETTE DOHERTY ON MEDICAL FLOOR
--- NOTE | 2019-10-18 17:33 | NUR ---
PATIENT IS ALERT AND ORIENTED. HE IS . HE HAS CAREGIVERS AT HOME. PATIENT STATES HE MOVES FROM THE BED TO HIS CHAIR THROUGHOUT THE DAY. PATIENT HAS A CHRONIC ESTEBAN. ATTENDS IN PLACE. HE HAS BOWEL MOVEMENTS IN HIS ATTENDS THEN CALLS FOR HELP CLEANING UP ACCORDING TO HIM. WILL CONTINUE TO MONITOR.
--- NOTE | 2019-10-18 21:29 | NUR ---
1999 PT REQUESTED ENEMA DUE TO CONSTIPATION. OT ORDER FROM PROVIDER BRANDON WAS RECIEVED FOR FEET ENEMA. ENEMA WORKED WELL PT PASSED 3 BASEBALL SIZED BM'S. PT WOULD BENEFIT FROM PRN ENEMA.
--- NOTE | 2019-10-19 05:06 | NUR ---
SUMMARY PT COMPLAINED OF SEVERE CONSTIPATION FOR FIRST PART OF SHIFT. PROVIDER BRANDON WAS CALLED AND A ENEMA WAS ORDERED. PT HAD A LARGE BM. PT CONTINUED TO COMPLAIN OF CONSTIPATION. PRUNE AND APPLE JUICE W/ BUTTER WAS GIVEN TO PT TO DRINK. PT HAD ANOTHER VERY LARGE BM. PT WAS ABLE TO REST AFTERWARDS FOR SHORT PERIOD. PT FREQUENTLY CRIES AND COMPLAINS OF NON-SPECIFIC DISCOMFORT. PT DOES COMPLAIN AT TIMES OF SORES ON BUTTOCKS. DRESSINGS WERE CHANGED AND SORES CLEANED. PT STATES HE USES NIGHT TIME TYLENOL AT HOME FOR A SLEEP AID. PT CURRENTLY CRYING AND COMPLAINING OF NON-SPECIFIC DISCOMFORT. PT HAS BEEN TX W/ OXYCODONE AND TYLENOL W/ SOME RELIEF. WCTM. CALL LIGHT IN REACH.
[2019-10-19 06:15] LABS: BASOPHILS ABSOLUTE AUTO 0.03 K/mm3 (0.00-0.23); BASOPHILS PERCENT AUTO 0 % (0-2); EOSINOPHILS ABSOLUTE AUTO 0.32 K/mm3 (0.00-0.68); EOSINOPHILS PERCENT AUTO 2 % (0-6); Hemoglobin 7.8 g/dL (13.5-17.5); IMMATURE GRAN ABSOLUTE AUTO 0.21 K/mm3 (0.00-0.10); IMMATURE GRAN PERCENT AUTO 1 % (0-1); LYMPHOCYTES ABSOLUTE AUTO 2.06 K/mm3 (0.84-5.20); LYMPHOCYTES PERCENT AUTO 13 % (21-46); MONOCYTES ABSOLUTE AUTO 0.73 K/mm3 (0.16-1.47); MONOCYTES PERCENT AUTO 5 % (4-13); NEUTROPHILS ABSOLUTE AUTO 12.33 K/mm3 (1.96-9.15); NEUTROPHILS PERCENT AUTO 79 % (41-73); Platelet Count 281 K/mm3 (150-400); White Blood Cell Count 15.68 K/mm3 (4.00-11.30)
[2019-10-19 06:31] LABS: Bun/Creatinine Ratio 19.7 (12.0-20.0); Calcium, Blood 8.5 mg/dL (8.5-10.1); Creatinine, Blood 2.13 mg/dL (0.60-1.20); Potassium, Blood 3.3 mmol/L (3.5-5.5)
[2019-10-19 06:36] LABS: Hematocrit 25.2 % (37.0-53.0); Mean Corpuscular HGB 28.7 pg (26.0-34.0); Mean Corpuscular Volume 93 fL (80-100); RDW Standard Deviation 109.8 fL (35.1-46.3); Red Blood Cell Count 2.72 M/mm3 (4.30-5.90)
[2019-10-19] MEDS ORDERED: ACET325 PO (10:43)
[2019-10-19] MEDS ORDERED: ELIQUIS5 MG PO (10:47)
[2019-10-19] MEDS ORDERED: DOXY100 PO (10:48)
[2019-10-19] MEDS ORDERED: BASAGLAR K100 UNIT/1 SC (10:49)
[2019-10-19] MEDS ORDERED: VISBIOME 112.51 EACH PO (10:50)
[2019-10-19] MEDS ORDERED: SENN187 PO (10:51)
[2019-10-19] MEDS ORDERED: CEFU500T30 PO (10:52)
--- NOTE | 2019-10-19 11:14 | NUR ---
DISCHARGE INSTRUCTIONS GIVEN TO PATIENT WELL EDUCATIONAL MATERIAL. IV DISCONTINUED. ALL QUESTIONS ANSWERED. CALLED AND INFORMED OF PATIENTS DISCHARGE AND SHE REQUESTED THAT MEDICATIONS BE FILLED AT [facility] IN [place]; SHE WAS NOTIFIED OF TIME PATIENT TO DISCHARGE HOME VIA AMBULANCE AT 1130. PATIENT READY AND WAITING IN ROOM FOR DISCHARGE.
--- NOTE | 2019-10-19 11:42 | NUR ---
PATIENT DISCHARGE AT 1140 VIA AMBULENCE.
== END 2019-10-19 11:37 | disposition home health service (06) | DRG 871 ==
LOC: ER 19:26 → PCU 22:09 → ERHOLD 22:09 → PCU 23:58 → MEDS 10-18 13:47 → ENPENDDIS 10-19 10:00 → MEDS 10-19 11:37
PROVIDERS: Emergency Medicine; Hospitalist; Internal Medicine; Nurse Practitioner Acute Care; ADMIT Family Medicine
PROC: 30233N1 Transfusion of Nonautologous Red Blood Cells into Peripheral Vein, Percutaneous Approach (ICD-10-PCS; principal; 2019-10-16)
DX: A41.9 Sepsis, unspecified organism (principal); J69.0 Pneumonitis due to inhalation of food and vomit; J96.21 Acute and chronic respiratory failure with hypoxia; G92 Toxic encephalopathy; N17.9 Acute kidney failure, unspecified; C90.00 Multiple myeloma not having achieved remission; I13.0 Hypertensive heart and chronic kidney disease with heart failure and stage 1 through stage 4 chronic kidney disease, or unspecified chronic kidney disease; I50.32 Chronic diastolic (congestive) heart failure; I48.20 Chronic atrial fibrillation, unspecified; F11.20 Opioid dependence, uncomplicated; R65.20 Severe sepsis without septic shock; D63.0 Anemia in neoplastic disease; J44.9 Chronic obstructive pulmonary disease, unspecified; N18.2 Chronic kidney disease, stage 2 (mild); E11.22 Type 2 diabetes mellitus with diabetic chronic kidney disease; T50.915A Adverse effect of multiple unspecified drugs, medicaments and biological substances, initial encounter; G47.33 Obstructive sleep apnea (adult) (pediatric); K59.00 Constipation, unspecified; E66.9 Obesity, unspecified; N40.0 Benign prostatic hyperplasia without lower urinary tract symptoms; F12.20 Cannabis dependence, uncomplicated; E11.40 Type 2 diabetes mellitus with diabetic neuropathy, unspecified; E78.5 Hyperlipidemia, unspecified; Z79.01 Long term (current) use of anticoagulants; Z88.1 Allergy status to other antibiotic agents; Z88.5 Allergy status to narcotic agent; Z99.81 Dependence on supplemental oxygen; Z87.891 Personal history of nicotine dependence; Z79.899 Other long term (current) drug therapy; Z79.4 Long term (current) use of insulin; Z74.01 Bed confinement status; Z68.36 Body mass index [BMI] 36.0-36.9, adult; Z22.39 Carrier of other specified bacterial diseases
CPT/HCPCS: 0099U; 36415; 36430; 36600; 71045; 80047; 80048; 80053; 81001; 82728; 82803; 82947; 83540; 83550; 83605; 83735; 83880; 84484; 85014; 85025; 85045; 86850; 86900; 86901; 86923; 87040; 87077; 87086; 87186; 92526; 92610; 93005; 93010; 94640; 94762; 96365; 96366; 99285-25; A9270; A9270-GY; J0456; J0696; J1940; J1956; J2543; J3010; J7030; J7050; P9016; U0003

== ENCOUNTER 2019-11-02 17:42 | Inpatient (IN) | payer OTHER ==
[~2019-11-02] VITALS: Ht 182.9 cm; Wt 110.6 kg
[~2019-11-02 17:42] MED LIST changes: +ACET325 PO; +AMLO5 PO; +BASAGLAR K100 UNIT/1 SC; +CEFU500T30 PO; +CLON.5 PO; +ELIQUIS5 MG PO; +GABA300 PO; +IBUP400 PO; +LISI5 PO; +LORA1 PO; +METO50 PO; +OXYC10TA19 PO; +SENN187 PO; +VISBIOME 112.51 EACH PO
[2019-11-02 18:36] LABS: Albumin/Globulin Ratio 0.5 (0.8-1.8); Bilirubin, Total 0.5 mg/dL (0.1-1.0); Bun/Creatinine Ratio 15.4 (12.0-20.0); Calcium, Blood 8.9 mg/dL (8.5-10.1); Creatinine, Blood 5.59 mg/dL (0.60-1.20); Globulin, Blood 6.2 g/dL (2.2-4.0); Potassium, Blood 5.4 mmol/L (3.5-5.5); Total Protein, Blood 9.2 g/dL (6.4-8.2)
[2019-11-02 19:18] LABS: BASOPHILS ABSOLUTE AUTO 0.02 K/mm3 (0.00-0.23); BASOPHILS PERCENT AUTO 0 % (0-2); EOSINOPHILS ABSOLUTE AUTO 0.59 K/mm3 (0.00-0.68); EOSINOPHILS PERCENT AUTO 7 % (0-6); IMMATURE GRAN ABSOLUTE AUTO 0.05 K/mm3 (0.00-0.10); IMMATURE GRAN PERCENT AUTO 1 % (0-1); LYMPHOCYTES ABSOLUTE AUTO 2.42 K/mm3 (0.84-5.20); LYMPHOCYTES PERCENT AUTO 27 % (21-46); MONOCYTES ABSOLUTE AUTO 0.37 K/mm3 (0.16-1.47); MONOCYTES PERCENT AUTO 4 % (4-13); NEUTROPHILS ABSOLUTE AUTO 5.56 K/mm3 (1.96-9.15); NEUTROPHILS PERCENT AUTO 62 % (41-73); NRBC ABSOLUTE 0.02 K/mm3 (0.00-0.02); NRBC Auto 0.2 /100 WBC (0.0-0.2); Platelet Count 260 K/mm3 (150-400); White Blood Cell Count 9.01 K/mm3 (4.00-11.30)
[2019-11-02 19:37] LABS: Hematocrit 18.2 % (37.0-53.0); Mean Corpuscular HGB 28.5 pg (26.0-34.0); Mean Corpuscular HGB Conc 30.2 g/dL (31.5-36.5); Mean Corpuscular Volume 94 fL (80-100); RDW Coefficient Variation 31.5 % (11.7-14.2); RDW Standard Deviation 107.3 fL (35.1-46.3); Red Blood Cell Count 1.93 M/mm3 (4.30-5.90)
[2019-11-02 19:38] LABS: Hemoglobin 5.5 g/dL (13.5-17.5)
[2019-11-02 19:49] LABS: Magnesium, Blood 2.3 mg/dL (1.6-2.4); Troponin I <0.015 ng/mL (0.000-0.040)
[2019-11-02] MEDS ORDERED: TRAZ150T57 PO (21:36)
[2019-11-03 02:24] LABS: Hemoglobin 6.5 g/dL (13.5-17.5)
[2019-11-03 02:25] LABS: Hematocrit 20.9 % (37.0-53.0)
--- NOTE | 2019-11-03 05:57 | NUR ---
SHIFT SUMMARY PT ARRIVED VIA STRETCHER FROM ER; SLID OVER TO BED W/ SLIDER SHEET; PT A&O X3; UNABLE TO ANSWER ADMIT QUESTIONS; POOR HISTORIAN; VSS; O2 SATS >93 ON 5L NC; COARSE LUNG SOUNDS T/O W/ EXP WHEEZES; SHALLOW IRREGULAR BREATHING NOTED; PT REFUSED CPAP FROM RT; NUMEROUS SCATTERED WOUNDS / SCABS OF VARIOUS STAGES OF HEALING; PROVIDER NOTIFIED OF HGB OF 6.5; 1 UNIT PRBC ORDERED; TRANSFUSSION BEGUN @ 0545; CALL LIGHT IN REACH; BED IN LOWEST POSITION; WILL CONTINUE TO MONITOR CLOSELY UNTIL HAND OFF TO DAY SHIFT RN.
[2019-11-03 07:02] LABS: Source, Urine Clean Catch
[2019-11-03 07:10] LABS: Bilirubin, Urine Neg (Neg); Blood, Urine 3+ (Neg); Glucose Qualitative, Urine Neg (Neg); Ketones, Urine Neg (Neg); Leukocyte Esterase, Urine 3+ (Neg); Nitrite, Urine Neg (Neg); Protein, Urine 2+ (Neg); Urobilinogen, Urine NORM (Normal)
[2019-11-03 07:16] LABS: Appearance, Urine Cloudy (Clear); Color, Urine Yellow (P-Yellow)
[2019-11-03 07:18] LABS: White Blood Cells, Urine TNTC /hpf (0-5)
[2019-11-03 07:20] LABS: Amorphous Mod (0-Heavy); Bacteria Many /hpf; Squamous Epithelial Cells Few /hpf (Few); Yeast/Fungi Urine Many /hpf
--- NOTE | 2019-11-03 08:52 | NUR ---
AM NOTE... ASSUMED CARE OF PT APROX 0700, PT IS A&Ox4 BUT FORGETFUL AT TIMES. HIS VS ARE STABLE AT THIS TIME, 3RD UNIT OF PRBCS IS TRANSFUSING. L/S COARSE W/EXP WHEEZES T/O ON 5L NC. PT STATES THIS IS HIS BASELINE. PT STATES HE HAS NOT HAD A BM "FOR 5 DAYS." PT IS GETTING BOWEL CARE AT THIS TIME. GENERALZIED TRACE EDEMA NOTED. CALL LIGHT IN REACH WILL CONTINUE TO MONITOR
[2019-11-03 10:30] LABS: Hematocrit 23.3 % (37.0-53.0); Hemoglobin 7.3 g/dL (13.5-17.5); Mean Corpuscular HGB 29.2 pg (26.0-34.0); Mean Corpuscular HGB Conc 31.3 g/dL (31.5-36.5); Mean Corpuscular Volume 93 fL (80-100); Platelet Count 260 K/mm3 (150-400); RDW Coefficient Variation 26.1 % (11.7-14.2); White Blood Cell Count 10.07 K/mm3 (4.00-11.30)
[2019-11-03 10:52] LABS: Albumin, Blood 2.9 g/dL (3.4-5.0); Albumin/Globulin Ratio 0.5 (0.8-1.8); Bilirubin, Total 1.4 mg/dL (0.1-1.0); Bun/Creatinine Ratio 14.5 (12.0-20.0); Calcium, Blood 8.5 mg/dL (8.5-10.1); Creatinine, Blood 5.8 mg/dL (0.60-1.20); Globulin, Blood 6.3 g/dL (2.2-4.0); Magnesium, Blood 1.9 mg/dL (1.6-2.4); Phosphorus, Blood 7.3 mg/dL (2.5-4.9); Potassium, Blood 5.4 mmol/L (3.5-5.5); Total Protein, Blood 9.2 g/dL (6.4-8.2)
[2019-11-03 15:17] LABS: Hematocrit 24.9 % (37.0-53.0)
--- NOTE | 2019-11-03 17:06 | NUR ---
SHIFT SUMMARY... NO ACUTE NEGATIVE CHANGES NOTED THIS SHIFT. PT'S VS HAVE BEEN STABLE. PT HAS GOTTEN A TOTAL OF 4 UNITS OF PRBCS SINCE ADMIT. PT'S HGB IS CURRENTLY 8.0. PT DENIES ANY CHEST PAIN, SOB OR N/V. PT HAS NOT HAD BM, BOWEL CARE STARTED. ESTEBAN IS PATENT AND DRAINING CLOUDY YELLOW WITH SEDIMENT TO GRAVITY. PT HAS BEEN TURNED Q2 HRS BUT WILL MOVE HIMSELF BACK TO THE SITTING/SUPINE POSITION. SKIN CARE EDUCATION PROVIDED, PT STATED HIS UNDERSTANDING. 24 HR URINE COLLECTION WILL BE DONE AT 0500 ON 11/03. PER THE DOG RAISER THE PT HAS ASKED HIS AND FAMILY TO BRING IN HIS "DAB"/VAPE PEN, PT WAS EDUCATED ON THE FACILITY POLICY OF SMOKING IN THE ROOM. PT STATED HIS UNDERSTANDING AT THIS TIME. CALL LIGHT IN REACH WILL CONTINUE TO MONITOR UNTIL REPORT IS GIVEN TO ONCOMING RN.
--- NOTE | 2019-11-03 23:30 | NUR ---
ASSUMED CARE OF PATIENT AT [facility] 1905 FROM ALIE Cardenas RN. PATIENT REPORTS CHRONIC PAIN IN HIS BACK THAT HE TAKES OXYCODONE AT HOME FOR; NONE ORDERED BUT LISTED IN PATIENT'S MED REC; CALLED [facility] AT APPROXIMATELY 2300; ORDERS RECIEVED FOR 5MG OXYCODONE. GA Tom RN CALLED [facility] AT APPROXIMATELY 2135 TO REQUESTED SLEEP AID THAT PATIENT TAKES; ORDERS RECIEVED. PATIENT DENIES NUMBNESS, TINGLING, DIZZINESS OR NAUSEA. AFIB ON TELE; OXYGEN SATURATION ABOVE 90% ON 5LPM VIA NC (BASELINE). PATIENT HAD PRESSURE ULCER AND EVEN WITH REPEATED EDUCATION ON PRESSURE ULCER TX PATIENT REFUSED TO BE TURNED AT TIMES. URINARY CATHETER IN PLACED; [address] IVF INFUSING PER ORDER. PATIENT CURRENTLY RESTING IN BED; CALL LIGHT IN REACH; BED IN LOWEST POSISTION; BED ALARM ON; WILL CONTINUE TO MONITOR AND ASSESS UNTIL END OF SHIFT.
[2019-11-04 03:34] LABS: BASOPHILS ABSOLUTE AUTO 0.02 K/mm3 (0.00-0.23); BASOPHILS PERCENT AUTO 0 % (0-2); EOSINOPHILS ABSOLUTE AUTO 0.42 K/mm3 (0.00-0.68); EOSINOPHILS PERCENT AUTO 4 % (0-6); Hematocrit 23.9 % (37.0-53.0); Hemoglobin 7.7 g/dL (13.5-17.5); IMMATURE GRAN ABSOLUTE AUTO 0.04 K/mm3 (0.00-0.10); IMMATURE GRAN PERCENT AUTO 0 % (0-1); LYMPHOCYTES ABSOLUTE AUTO 1.86 K/mm3 (0.84-5.20); LYMPHOCYTES PERCENT AUTO 19 % (21-46); MONOCYTES ABSOLUTE AUTO 0.46 K/mm3 (0.16-1.47); MONOCYTES PERCENT AUTO 5 % (4-13); Mean Corpuscular HGB 29.7 pg (26.0-34.0); Mean Corpuscular HGB Conc 32.2 g/dL (31.5-36.5); Mean Corpuscular Volume 92 fL (80-100); NEUTROPHILS ABSOLUTE AUTO 6.87 K/mm3 (1.96-9.15); NEUTROPHILS PERCENT AUTO 71 % (41-73); Platelet Count 233 K/mm3 (150-400); RDW Coefficient Variation 24.9 % (11.7-14.2); RDW Standard Deviation 83.7 fL (35.1-46.3); Red Blood Cell Count 2.59 M/mm3 (4.30-5.90); White Blood Cell Count 9.67 K/mm3 (4.00-11.30)
[2019-11-04 03:53] LABS: Albumin, Blood 2.9 g/dL (3.4-5.0); Anion Gap 6 mmol/L (6-16); Blood Urea Nitrogen 82 mg/dL (8-24); Bun/Creatinine Ratio 14.2 (12.0-20.0); CO2, Blood 24 mmol/L (21-32); Calcium, Blood 8.5 mg/dL (8.5-10.1); Chloride, Blood 106 mmol/L (98-108); Creatinine, Blood 5.79 mg/dL (0.60-1.20); Glomerular Filtration Rate 10 (60-); Glucose, Blood 106 mg/dL (70-99); Phosphorus, Blood 6.5 mg/dL (2.5-4.9); Potassium, Blood 5.1 mmol/L (3.5-5.5); Sodium, Blood 136 mmol/L (136-145)
--- NOTE | 2019-11-04 05:09 | NUR ---
24 HOUR URINE COMPLETED AT 0500; 2400ML DROPPED OFF AT LAB.
--- NOTE | 2019-11-04 05:22 | NUR ---
PATIENT SLEPT ABOUT EIGHT HOURS LAST NIGHT; REPORTS "I FINALLY SLEPT". VSS. NO ACUTE CHANGES TO REPORT; HEMOGLOBIN DROPPED TO 7.7; DISCUSSED WITH ASSISTANT PROFESSOR OF CRIMINAL JUSTICE. PATIENT REFUSED BEDBATH THIS AM; REPORTS "I'LL TAKE ONE LATER". WILL CONTINUE TO MONITOR AND ASSESS UNTIL END OF SHIFT.
[2019-11-04 05:29] LABS: Protein, Urine Quantitative 78.6 mg/dL (0.0-11.9)
[2019-11-04] MEDS ORDERED: Klonopin0.5 MG PO (05:51)
[2019-11-04] MEDS ORDERED: LORA1 SL (05:52)
[2019-11-04 13:03] LABS: Hematocrit 24.1 % (37.0-53.0); Hemoglobin 7.8 g/dL (13.5-17.5)
--- NOTE | 2019-11-04 14:16 | NUR ---
PT STATUS CHANGED TO MEDICAL WITH TELE TODAY. PT'S VITALS HAS BEEN STABLE, HRR AFIB ON THE 90'S, DENIES CHEST PAIN/PRESSURE, LUNGS WITH EXPIRATORY WHEEZES PT ON 5L OF O2 PER BASELINE AT HOME, PT RECEIVED BREATHING TX PER RT. PT RECEIVED 1 PRBC THIS MORNING HGB WENT UP FROM 7.[address] DONOVAN ORDER TO TRANSFUSE 2ND PRBC FOR TODAY AND TO RECHECK H&H AN HOUR AFTER TRANSFUSION. PT WAS GIVEN PAIN MEDS X1 FOR BACK PAIN AND WAS EFFECTIVE. REPORT GIVEN TO MISSY DOHERTY IN SURGICAL FLOOR, PT TRANSFERRED TO 226 ALL BELONGINGS SENT WITH PT.
--- NOTE | 2019-11-04 14:30 | NUR ---
TRANSFER: PT TO ROOM 226 FROM PCU. ASSUMED CARE OF PATIENT. WILL CONT TO MONITOR AND TREAT.
--- NOTE | 2019-11-04 18:16 | NUR ---
PT HAS BEEN STABLE SINCE TRANSFER FROM PCU. PT FINISHING 2ND UNIT PRBC. PT ORIENTED X3, CALLS APPROPRIATELY NEEDED. TELE REMAINS AFIB, CONTROLLED RATE. PT HAS WHEEZING LS. REMAINS ON 5L O2 PER HOME REGIMINE. NAHED ADA DIET WELL, NO BS COVERAGE NEEDED. ESTEBAN DRAINING WELL, PENDING URINE CULTURE. PT NEEDS OCCULT STOOL COLLECTION, NO BM TODAY. REPOSITIONING NEEDED. BLE FLOATED ON PILLOWS. PLAN FOR BONE MARROW BIOPSY WEDNESDAY.
[2019-11-04 20:27] LABS: BASOPHILS ABSOLUTE AUTO 0.02 K/mm3 (0.00-0.23); BASOPHILS PERCENT AUTO 0 % (0-2); EOSINOPHILS ABSOLUTE AUTO 0.41 K/mm3 (0.00-0.68); EOSINOPHILS PERCENT AUTO 4 % (0-6); Hematocrit 26.4 % (37.0-53.0); Hemoglobin 8.6 g/dL (13.5-17.5); IMMATURE GRAN ABSOLUTE AUTO 0.05 K/mm3 (0.00-0.10); IMMATURE GRAN PERCENT AUTO 1 % (0-1); LYMPHOCYTES ABSOLUTE AUTO 1.42 K/mm3 (0.84-5.20); LYMPHOCYTES PERCENT AUTO 15 % (21-46); MONOCYTES PERCENT AUTO 4 % (4-13); Mean Corpuscular HGB 29.7 pg (26.0-34.0); Mean Corpuscular HGB Conc 32.6 g/dL (31.5-36.5); Mean Corpuscular Volume 91 fL (80-100); NEUTROPHILS ABSOLUTE AUTO 7.46 K/mm3 (1.96-9.15); NEUTROPHILS PERCENT AUTO 77 % (41-73); Platelet Count 213 K/mm3 (150-400); RDW Coefficient Variation 22.6 % (11.7-14.2); RDW Standard Deviation 73.5 fL (35.1-46.3); White Blood Cell Count 9.76 K/mm3 (4.00-11.30)
--- NOTE | 2019-11-05 00:31 | NUR ---
ASSUMED CARE OF PT, REPORT REC FROM CHAS MAYNARD. NO DISTRESS NOTED. 5LO2 NC IN PLACE, PT DENIES SOB. PT REPOSITIONED, PT DENIES NEEDS AT THIS TIME. BED ALARM, CALL LIGHT IN PT'S HAND. WILL MONITOR AND TX PER ORDERS.
[2019-11-05 04:41] LABS: BASOPHILS ABSOLUTE AUTO 0.02 K/mm3 (0.00-0.23); BASOPHILS PERCENT AUTO 0 % (0-2); EOSINOPHILS ABSOLUTE AUTO 0.48 K/mm3 (0.00-0.68); EOSINOPHILS PERCENT AUTO 6 % (0-6); Hematocrit 25.2 % (37.0-53.0); Hemoglobin 8.2 g/dL (13.5-17.5); IMMATURE GRAN ABSOLUTE AUTO 0.04 K/mm3 (0.00-0.10); IMMATURE GRAN PERCENT AUTO 1 % (0-1); LYMPHOCYTES ABSOLUTE AUTO 1.51 K/mm3 (0.84-5.20); LYMPHOCYTES PERCENT AUTO 19 % (21-46); MONOCYTES ABSOLUTE AUTO 0.44 K/mm3 (0.16-1.47); MONOCYTES PERCENT AUTO 6 % (4-13); Mean Corpuscular HGB 30.3 pg (26.0-34.0); Mean Corpuscular HGB Conc 32.5 g/dL (31.5-36.5); Mean Corpuscular Volume 93 fL (80-100); NEUTROPHILS ABSOLUTE AUTO 5.34 K/mm3 (1.96-9.15); NEUTROPHILS PERCENT AUTO 68 % (41-73); Platelet Count 192 K/mm3 (150-400); RDW Coefficient Variation 22.5 % (11.7-14.2); RDW Standard Deviation 73.7 fL (35.1-46.3); Red Blood Cell Count 2.71 M/mm3 (4.30-5.90); White Blood Cell Count 7.83 K/mm3 (4.00-11.30)
[2019-11-05 04:57] LABS: Albumin, Blood 2.5 g/dL (3.4-5.0); Anion Gap 7 mmol/L (6-16); Blood Urea Nitrogen 83 mg/dL (8-24); Bun/Creatinine Ratio 14.7 (12.0-20.0); CO2, Blood 23 mmol/L (21-32); Calcium, Blood 8.3 mg/dL (8.5-10.1); Chloride, Blood 107 mmol/L (98-108); Creatinine, Blood 5.66 mg/dL (0.60-1.20); Glomerular Filtration Rate 11 (60-); Glucose, Blood 92 mg/dL (70-99); Sodium, Blood 137 mmol/L (136-145)
--- NOTE | 2019-11-05 07:26 | NUR ---
PT HAD NO ACUTE CHANGES T/O NIGHT; VSS. HR AFIB TRENDING 80'S -100 PER TELE MONITOR. SATS >95% ON 5LNC PER BASELINE. LUNGS WHEEZY, PT DECLINED NEED FOR RT TX. ESTEBAN PATANT DNRG LIGHT YELLOW URINE. IVF CONT PER ORDERS. PT REPOSITIONED Q2, ROM EXERCISES ENC. PT USING CALL LIGHT FOR ASSISTANCE, REPORT GIVEN TO DAY RN.
--- NOTE | 2019-11-05 15:47 | NUR ---
SHIFT SUMMARY NO ACUTE CHANGES THIS SHIFT. PT RECEIVING 2 PAIN PILLS PRN FOR CHRONIC PAIN. REPOSITIONING Q2H TOLERATED AND PT ALLOWS. NAHED ADA DIET. IVF INFUSING PER ORDERS. ON BASELINE 5L O2 VIA NC. PT PLANNING TO HAVE BIOPSY TOMORROW. PT USES CALL LIGHT APPROPRIATELY.
[2019-11-06 04:05] LABS: BASOPHILS ABSOLUTE AUTO 0.01 K/mm3 (0.00-0.23); BASOPHILS PERCENT AUTO 0 % (0-2); EOSINOPHILS ABSOLUTE AUTO 0.53 K/mm3 (0.00-0.68); EOSINOPHILS PERCENT AUTO 7 % (0-6); Hematocrit 25.3 % (37.0-53.0); Hemoglobin 8.1 g/dL (13.5-17.5); IMMATURE GRAN ABSOLUTE AUTO 0.04 K/mm3 (0.00-0.10); IMMATURE GRAN PERCENT AUTO 1 % (0-1); LYMPHOCYTES ABSOLUTE AUTO 1.72 K/mm3 (0.84-5.20); LYMPHOCYTES PERCENT AUTO 21 % (21-46); MONOCYTES ABSOLUTE AUTO 0.49 K/mm3 (0.16-1.47); MONOCYTES PERCENT AUTO 6 % (4-13); Mean Corpuscular HGB 29.7 pg (26.0-34.0); Mean Corpuscular Volume 93 fL (80-100); NEUTROPHILS ABSOLUTE AUTO 5.31 K/mm3 (1.96-9.15); NEUTROPHILS PERCENT AUTO 66 % (41-73); Platelet Count 177 K/mm3 (150-400); RDW Coefficient Variation 22.4 % (11.7-14.2); Red Blood Cell Count 2.73 M/mm3 (4.30-5.90)
[2019-11-06 04:17] LABS: Albumin, Blood 2.6 g/dL (3.4-5.0); Anion Gap 5 mmol/L (6-16); Blood Urea Nitrogen 83 mg/dL (8-24); Bun/Creatinine Ratio 14.7 (12.0-20.0); CO2, Blood 25 mmol/L (21-32); Calcium, Blood 7.9 mg/dL (8.5-10.1); Chloride, Blood 109 mmol/L (98-108); Creatinine, Blood 5.63 mg/dL (0.60-1.20); Glomerular Filtration Rate 11 (60-); Glucose, Blood 89 mg/dL (70-99); Magnesium, Blood 1.7 mg/dL (1.6-2.4); Phosphorus, Blood 5.1 mg/dL (2.5-4.9); Sodium, Blood 139 mmol/L (136-145)
--- NOTE | 2019-11-06 04:31 | NUR ---
WOUNDS/SKIN BREAKDOWN PT REPOSITIONED AND GIVEN BED BATH AT THIS TIME. COCCYX / GLUTEAL FOLDS SHOW BREAKDOWN; PICTURES IN CHART. AREA CLEANSED AND MEPILEX PLACE. HEEL PROTECTORS ALSO PLACED AT THIS TIME
--- NOTE | 2019-11-06 05:11 | NUR ---
SHIFT SUMMARY PT HAS BEEN ALERT BUT FORGETFUL/CONFUSED AT TIMES. HE HAS BEEN ANXIOUS AT TIMES AND REASSURED PRN. PT HAS REFUSED TURNING SEVERAL TIMES. PT WAS GIVEN BEDBATH THIS SHIFT AND MEPILEX WAS PLACED ON COCCYX. HEEL PROTECTORS PLACED. PAIN MANAGED WITH PO PAIN MED PER ORDER; SEE EMAR. NO ACUTE CHANGES OVERNIGHT. ASSISTED WITH ADL'S PRN.
--- NOTE | 2019-11-06 09:30 | NUR ---
dr gregorio performed bedside bone marrow biopsy, pathology in room. dr gregorio reported r illiac/back site with slight drainage which is expected per dr gregorio, will monitor and place pressure if increased per Dr Gregorio.
--- NOTE | 2019-11-06 10:31 | NUR ---
pt's called for update. this rn spent approx 15 min on phone reporting updates and pt situation.
--- NOTE | 2019-11-06 11:20 | NUR ---
Echocardiogram completed.
--- NOTE | 2019-11-06 16:51 | NUR ---
PROVIDED PT WITH THERAPEUTIC COMMUNICATION/ENCOURAGEMENT WHEN HE TEARFULLY REPORTED HE WANTED TO GO HOME "TO WITH MY FAMILY". ENCOURAGED PT TO TALK TO /FAMILY WELL DR DORMAN TO DETERMINE PERMACATH PLACEMENT AND DC PLANNING. PT AGREES TO SPEAK TO HIS , EXPRESSED HE MISSED HER VERY MUCH.
--- NOTE | 2019-11-06 17:48 | NUR ---
SHIFT SUMMARY: A/0 X 3, FORGETFUL AT TIME BUT REORIENTS EASILY. PT APPEARS ANXIOUS WHEN DISCUSSING THE PERMACATH AND DIALYSIS, SHARES CONCERN ABOUT TRANPORTATION, MISSES HIS FAMILY VERY MUCH, TEARFUL WHEN DISCUSSING THEM. PT ENCOURAGED TO SPEAK WITH HIS AND CHILDREN ON THE PHONE, WHICH HE DOES AND SEEMS TO BE CALMED. PT WITH BASELINE ESTEBAN, PATENT AND DRAINING, URINE OUTPUT >1500. PT TOLERATED PO INTAKE WITH NO N/V THIS SHIFT. PT STATES PAIN CONTROLLED PER AUG. PT EVALUATION THIS SHIFT, REPEAT FROM THREE DAYS AGO. PT'S STATES HE HAS BEEN BEDRIDDEN FOR TWO YEARS, IS UNABLE TO STAND. THEY ARE CONCERNED ABOUT HOW PT WILL GET TO DIALYSIS APPOINTMENTS. DR DORMAN CALLED TO DISCUSSED THIS WITH PT'S .
[2019-11-07 04:32] LABS: Hematocrit 25.8 % (37.0-53.0); Hemoglobin 8.2 g/dL (13.5-17.5)
[2019-11-07 04:56] LABS: Magnesium, Blood 1.7 mg/dL (1.6-2.4)
[2019-11-07 04:57] LABS: Albumin, Blood 2.9 g/dL (3.4-5.0); Anion Gap 9 mmol/L (6-16); Blood Urea Nitrogen 97 mg/dL (8-24); Bun/Creatinine Ratio 18.7 (12.0-20.0); CO2, Blood 21 mmol/L (21-32); Calcium, Blood 8.4 mg/dL (8.5-10.1); Chloride, Blood 105 mmol/L (98-108); Creatinine, Blood 5.18 mg/dL (0.60-1.20); Glomerular Filtration Rate 12 (60-); Glucose, Blood 166 mg/dL (70-99); Phosphorus, Blood 6.3 mg/dL (2.5-4.9); Potassium, Blood 5.4 mmol/L (3.5-5.5); Sodium, Blood 135 mmol/L (136-145)
--- NOTE | 2019-11-07 05:17 | NUR ---
PT IS ALERT AND ORIENTED X3. LITTLE CONFUSE BUT CAN EASILY REORIENT. PT IS ANXIOUS BUT CALM, STATING HE WANTS TO BE WITH HIS FAMILY. HE HAS BEEN TEARFUL, MISSING FAMILY. PT IS ENCOURAGE TO SPEAK ABOUT HIS FEELINGS. PT HAS COARSE AND WHEEZING LUNG SOUNDS, DYSPNEA ON EXER. HE IS ON 3L N/C, WITH 94% SPO2. PT'S BASELINE OF 5L 02 AT HOME. PT PAIN CONTROLLED BETWEEN 6-7/10 WITH SHEA. PT'S PAIN LEVEL OF 5/10 BASELINE AT HOME.HE HAS BEEN BED BOUND FOR COUPLE YRS, UNABLE TO STAND. NPO AFTER MIDNIGHT PER ORDER FOR PERMACATH PLACEMENT. PT HAS SEVERE ARTHRITIS. HE HAS ESTEBAN CATH, URINE OUTPUT OF 1900 ML, YELLOW AND CLEAR. NO STOOL OBTAIN. HE WAS ABLE TO SLEEP THROUGH THE NIGHT. LAST CBG 291, HUMALOG AND INSULIN GIVEN LAST NIGHT BEFORE BEDTIME. PT HAS TELE, AFIB WITH HR 115.
--- NOTE | 2019-11-07 06:13 | NUR ---
SHIFT SUMMARY I AGREE WITH DIRECTOR DATA SHIFT ASSESSMENT AND CLOSING NOTE. DR. DORMAN WAS AT BEDSIDE WITH PT. GAVE VERBAL ORDER FOR STAT CREATININE AT 0900HRS TODAY. RESULTS TO BE CALLED NO LATER THAT 10AM TODAY. IT IS TO BE DETERMINED AT THAT TIME IF HE IS TO GO TO OR FOR PERMACATH PLACEMENT. IS TO REMAIN NPO UNTIL THAT TIME. HE HAS CALLED SEVERAL TIMES ASKING FOR WATER OR OTHER FLUIDS. DENIES PAIN OR OTHER NEEDS AT THIS TIME. SAFETY MEASURES IN PLACE. WILL CONTINUE TO MONITOR AND GIVE HAND OFF TO ONCOMING SHIFT USING SBAR.
[2019-11-07 08:25] LABS: Performing Lab SYMBIODX; Test Name FLOW AND FISH
--- NOTE | 2019-11-07 09:45 | NUR ---
CR LEVEL CALLED TO DR DORMAN. NO PERMACATH TODAY.
[2019-11-07 14:11] LABS: Performing Lab SYMBIODX; Test Name BM ASP/BIOPSY
[2019-11-07] MEDS ORDERED: METO25ER PO (14:21)
[2019-11-07] MEDS ORDERED: ATOR40TA PO (14:22)
[2019-11-07] MEDS ORDERED: DEXA4 PO (14:25)
[2019-11-07] MEDS ORDERED: VISBIOME 112.51 EACH PO (14:26)
--- NOTE | 2019-11-07 15:30 | NUR ---
DISCHARGE PT VERY EXCITED FOR DC HOME. PAIN TOLERABLE. EATING AND DRINKING WELL. ESTEBAN PATENT, CLEAR URINE. SCRIPTS FAXED TO [facility]. DC PACKET SENT HOME WITH PT TO GIVE TO . TRANSPORT VIA [facility].
[2019-11-07 17:06] LABS: A/G RATIO 0.9 (0.7-1.7); ALBUMIN 3.9 g/dL (2.9-4.4); ALPHA-1-GLOBULIN 0.2 g/dL (0.0-0.4); ALPHA-2-GLOBULIN 0.6 g/dL (0.4-1.0); BETA GLOBULIN 0.6 g/dL (0.7-1.3); GLOBULIN, TOTAL 4.4 g/dL (2.2-3.9); IMMUNOGLOBULIN A, QN, SERUM 200 mg/dL (61-437); IMMUNOGLOBULIN G, QN, SERUM 3880 mg/dL (603-1613); IMMUNOGLOBULIN M, QN, SERUM 24 mg/dL (20-172); M-SPIKE 2.5 g/dL (Not Observed); PROTEIN, TOTAL, SERUM 8.3 g/dL (6.0-8.5)
[2019-11-08 08:08] LABS: ANTIGLOMERULAR BM AB 3 units (0-20)
[2019-11-09 09:29] LABS: M-SPIKE, % Comment: % (Not Observed)
[2019-11-09 12:11] LABS: ANA DIRECT Negative (Negative); ANTIMYELOPEROXIDASE (MPO) ABS <9.0 U/mL (0.0-9.0); ANTIPROTEINASE 3 (PR-3) ABS <3.5 U/mL (0.0-3.5); ATYPICAL PANCA <1:20 titer (Neg:<1:20); CYTOPLASMIC (C-ANCA) <1:20 titer (Neg:<1:20); PERINUCLEAR (P-ANCA) <1:20 titer (Neg:<1:20)
== END 2019-11-07 15:00 | disposition home health service (06) | DRG 840 ==
LOC: ER 17:42 → PCU 23:31 → SURS 23:31 → PCU 23:38 → SURS 11-04 14:20
PROVIDERS: Emergency Medicine; Family Medicine; Internal Medicine Hematology & Oncology; Internal Medicine Nephrology; Nurse Practitioner Acute Care; ADMIT Internal Medicine
PROC: 30233N1 Transfusion of Nonautologous Red Blood Cells into Peripheral Vein, Percutaneous Approach (ICD-10-PCS; principal; 2019-11-02)
PROC: 07DR3ZX Extraction of Iliac Bone Marrow, Percutaneous Approach, Diagnostic (ICD-10-PCS; 2019-11-06)
DX: C90.00 Multiple myeloma not having achieved remission (principal); G92 Toxic encephalopathy; Z68.41 Body mass index [BMI] 40.0-44.9, adult; N17.9 Acute kidney failure, unspecified; N25.81 Secondary hyperparathyroidism of renal origin; E87.1 Hypo-osmolality and hyponatremia; N39.0 Urinary tract infection, site not specified; I47.2 Ventricular tachycardia; N18.4 Chronic kidney disease, stage 4 (severe); D63.0 Anemia in neoplastic disease; J44.9 Chronic obstructive pulmonary disease, unspecified; G47.33 Obstructive sleep apnea (adult) (pediatric); E78.5 Hyperlipidemia, unspecified; Z87.891 Personal history of nicotine dependence; E66.01 Morbid (severe) obesity due to excess calories; Z99.81 Dependence on supplemental oxygen; Z74.01 Bed confinement status; E87.5 Hyperkalemia; E88.09 Other disorders of plasma-protein metabolism, not elsewhere classified; E11.22 Type 2 diabetes mellitus with diabetic chronic kidney disease; Z79.4 Long term (current) use of insulin; E83.39 Other disorders of phosphorus metabolism; I08.1 Rheumatic disorders of both mitral and tricuspid valves; I27.20 Pulmonary hypertension, unspecified; I12.9 Hypertensive chronic kidney disease with stage 1 through stage 4 chronic kidney disease, or unspecified chronic kidney disease
CPT/HCPCS: 36415; 36430; 51702; 71045; 71250; 74176; 76770; 80053; 80069; 81001; 81050; 82550; 82565; 82784; 82947; 83516; 83520; 83735; 83880; 84100; 84145; 84156; 84165; 84166; 84484; 85014; 85018; 85025; 85027; 86038; 86256; 86334; 86335; 86850; 86900; 86901; 86923; 87086; 87106; 93005; 93010; 93306; 94640; 94760; 94762; 97110; 97161; 97165; 99285-25; A9270-GY; C9113; J0881; J1450; J1940; J1956; J7030; J7050; P9016

== ENCOUNTER → 2019-11-10 | Outpatient (CLI) | payer OTHER ==
[~2019-11-10] MED LIST changes: +ATOR40TA PO; +DEXA4 PO; +Klonopin0.5 MG PO; +LORA1 SL; +METO25ER PO; +TRAZ150T57 PO
[2019-11-10 11:04] LABS: Hematocrit 26.6 % (37.0-53.0); Hemoglobin 8.4 g/dL (13.5-17.5)
[2019-11-10 12:30] LABS: Anion Gap 9 mmol/L (6-16); Blood Urea Nitrogen 97 mg/dL (8-24); Bun/Creatinine Ratio 22.5 (12.0-20.0); CO2, Blood 20 mmol/L (21-32); Calcium, Blood 8.3 mg/dL (8.5-10.1); Chloride, Blood 107 mmol/L (98-108); Creatinine, Blood 4.32 mg/dL (0.60-1.20); Glomerular Filtration Rate 15 (60-); Glucose, Blood 103 mg/dL (70-99); Potassium, Blood 4.5 mmol/L (3.5-5.5); Sodium, Blood 136 mmol/L (136-145)
== END | disposition home or self-care (01) ==
LOC: LAB SHORT 10:25 → LAB 10:25
PROVIDERS: Internal Medicine Nephrology
DX: N18.5 Chronic kidney disease, stage 5 (principal); D63.1 Anemia in chronic kidney disease; N25.81 Secondary hyperparathyroidism of renal origin; E55.9 Vitamin D deficiency, unspecified; E78.00 Pure hypercholesterolemia, unspecified; R76.9 Abnormal immunological finding in serum, unspecified; R94.5 Abnormal results of liver function studies; R94.6 Abnormal results of thyroid function studies
CPT/HCPCS: 80069; 82306; 83970; 85014; 85018

== ENCOUNTER 2019-11-25 17:53 | Emergency (ER) | payer OTHER ==
[~2019-11-25] VITALS: Ht 185.4 cm; Wt 133.8 kg
[~2019-11-25 17:53] MED LIST changes: -CALC.25 PO; -Daily Multiple1 EACH PO; -FLUT1DIS8 INH; -PROAIR RESPICL90 MCG INH; -VITAMIN D31000 UNI1 PO; -Ventolin5 MG/1 ML
[2019-11-25] MEDS ORDERED: Klonopin0.5 MG PO (19:01)
[2019-11-25 19:03] LABS: BASOPHILS ABSOLUTE AUTO 0.02 K/mm3 (0.00-0.23); BASOPHILS PERCENT AUTO 0 % (0-2); EOSINOPHILS ABSOLUTE AUTO 0.21 K/mm3 (0.00-0.68); EOSINOPHILS PERCENT AUTO 1 % (0-6); Hematocrit 20.9 % (37.0-53.0); Hemoglobin 6.4 g/dL (13.5-17.5); IMMATURE GRAN ABSOLUTE AUTO 0.11 K/mm3 (0.00-0.10); IMMATURE GRAN PERCENT AUTO 1 % (0-1); LYMPHOCYTES ABSOLUTE AUTO 1.24 K/mm3 (0.84-5.20); LYMPHOCYTES PERCENT AUTO 8 % (21-46); MONOCYTES ABSOLUTE AUTO 0.76 K/mm3 (0.16-1.47); MONOCYTES PERCENT AUTO 5 % (4-13); Mean Corpuscular HGB 29.2 pg (26.0-34.0); Mean Corpuscular HGB Conc 30.6 g/dL (31.5-36.5); Mean Corpuscular Volume 95 fL (80-100); NEUTROPHILS ABSOLUTE AUTO 13.78 K/mm3 (1.96-9.15); NEUTROPHILS PERCENT AUTO 86 % (41-73); Platelet Count 225 K/mm3 (150-400); RDW Coefficient Variation 22.1 % (11.7-14.2); RDW Standard Deviation 71.6 fL (35.1-46.3); Red Blood Cell Count 2.19 M/mm3 (4.30-5.90); White Blood Cell Count 16.12 K/mm3 (4.00-11.30)
[2019-11-25 19:26] LABS: Albumin/Globulin Ratio 0.6 (0.8-1.8); Bilirubin, Total 0.8 mg/dL (0.1-1.0); Bun/Creatinine Ratio 24.1 (12.0-20.0); Calcium, Blood 8.5 mg/dL (8.5-10.1); Creatinine, Blood 4.31 mg/dL (0.60-1.20); Globulin, Blood 5.2 g/dL (2.2-4.0); Potassium, Blood 4.9 mmol/L (3.5-5.5); Total Protein, Blood 8.2 g/dL (6.4-8.2)
[2019-11-25 21:38] LABS: Source, Urine Catheter
[2019-11-25 21:41] LABS: Appearance, Urine Hazy (Clear); Bilirubin, Urine Neg (Neg); Blood, Urine 2+ (Neg); Color, Urine Yellow (P-Yellow); Glucose Qualitative, Urine Neg (Neg); Ketones, Urine Neg (Neg); Leukocyte Esterase, Urine Neg (Neg); Nitrite, Urine Neg (Neg); Protein, Urine 2+ (Neg); Urobilinogen, Urine NORM (Normal)
[2019-11-25 21:49] LABS: Amorphous Heavy (0-Heavy); Bacteria Rare /hpf; Squamous Epithelial Cells Rare /hpf (Few); White Blood Cells, Urine 0-2 /hpf (0-5)
== END 2019-11-25 23:26 | disposition home or self-care (01) ==
LOC: ER 17:53
PROVIDERS: Physician Assistant
DX: N18.9 Chronic kidney disease, unspecified (principal); D63.1 Anemia in chronic kidney disease; J44.9 Chronic obstructive pulmonary disease, unspecified; I48.91 Unspecified atrial fibrillation; I50.9 Heart failure, unspecified; Z88.5 Allergy status to narcotic agent; Z88.1 Allergy status to other antibiotic agents; Z79.899 Other long term (current) drug therapy; Z79.01 Long term (current) use of anticoagulants; Z79.4 Long term (current) use of insulin; Z87.891 Personal history of nicotine dependence
CPT/HCPCS: 36415; 36430; 51702; 71045; 80053; 81001; 83880; 84145; 85025; 86850; 86900; 86901; 86923; 93005; 93010; 99285-25; J7030; P9016

== ENCOUNTER → 2019-11-25 | Outpatient (CLI) | payer OTHER ==
[~2019-11-25] MED LIST changes: +CALC.25 PO; +Daily Multiple1 EACH PO; +FLUT1DIS8 INH; +PROAIR RESPICL90 MCG INH; +VITAMIN D31000 UNI1 PO; +Ventolin5 MG/1 ML
[2019-11-25 15:37] LABS: BASOPHILS ABSOLUTE AUTO 0.02 K/mm3 (0.00-0.23); BASOPHILS PERCENT AUTO 0 % (0-2); EOSINOPHILS ABSOLUTE AUTO 0.18 K/mm3 (0.00-0.68); EOSINOPHILS PERCENT AUTO 1 % (0-6); IMMATURE GRAN ABSOLUTE AUTO 0.04 K/mm3 (0.00-0.10); IMMATURE GRAN PERCENT AUTO 0 % (0-1); LYMPHOCYTES ABSOLUTE AUTO 1.09 K/mm3 (0.84-5.20); LYMPHOCYTES PERCENT AUTO 9 % (21-46); MONOCYTES ABSOLUTE AUTO 0.62 K/mm3 (0.16-1.47); MONOCYTES PERCENT AUTO 5 % (4-13); Mean Corpuscular HGB 29.5 pg (26.0-34.0); Mean Corpuscular HGB Conc 31.1 g/dL (31.5-36.5); Mean Corpuscular Volume 95 fL (80-100); NEUTROPHILS ABSOLUTE AUTO 10.79 K/mm3 (1.96-9.15); NEUTROPHILS PERCENT AUTO 85 % (41-73); Platelet Count 200 K/mm3 (150-400); RDW Standard Deviation 70.8 fL (35.1-46.3); White Blood Cell Count 12.74 K/mm3 (4.00-11.30)
[2019-11-25 15:45] LABS: Hemoglobin 5.6 g/dL (13.5-17.5)
[2019-11-25 15:51] LABS: Albumin, Blood 2.7 g/dL (3.4-5.0); Albumin/Globulin Ratio 0.7 (0.8-1.8); Bilirubin, Direct 0.3 mg/dL (0.0-0.3); Bilirubin, Indirect 0.5 mg/dL (0.1-0.7); Bilirubin, Total 0.8 mg/dL (0.1-1.0); Calcium, Blood 7.9 mg/dL (8.5-10.1); Creatinine, Blood 4.38 mg/dL (0.60-1.20); Globulin, Blood 4.1 g/dL (2.2-4.0); Phosphorus, Blood 5.3 mg/dL (2.5-4.9); Potassium, Blood 4.8 mmol/L (3.5-5.5); Total Protein, Blood 6.8 g/dL (6.4-8.2)
== END | disposition home or self-care (01) ==
LOC: LAB SHORT 13:24 → OLS 13:24
PROVIDERS: Internal Medicine Nephrology
DX: N18.4 Chronic kidney disease, stage 4 (severe) (principal); R94.5 Abnormal results of liver function studies
CPT/HCPCS: 80053; 82248; 84100; 85025

== ENCOUNTER 2019-11-29 07:26 | Day surgery (SDC) | payer OTHER ==
[~2019-11-29] VITALS: Ht 180.3 cm; Wt 123.0 kg
[2019-11-29] MEDS ORDERED: LISI5 PO (08:26)
[2019-11-29] MEDS ORDERED: PROAIR RESPICL90 MCG INH (08:26)
[2019-11-29] MEDS ORDERED: FLUT1DIS8 INH (08:27)
[2019-11-29] MEDS ORDERED: GABA300 PO (08:27)
[2019-11-29] MEDS ORDERED: Ventolin5 MG/1 ML (08:28)
[2019-11-29] MEDS ORDERED: VITAMIN D31000 UNI1 PO (08:28)
[2019-11-29] MEDS ORDERED: LACT10SY PO (08:29)
--- NOTE | 2019-11-29 09:28 | NUR ---
PT RETURNED TO RECOVERY ROOM IN BED. RACW PERM CATH SITE SOFT NON-TENDER WITH NO HEMATOMA, NO BLEEDING AND INTACT DRESSING. PT'S IN ROOM AND CALL LIGHT IN REACH.
--- NOTE | 2019-11-29 09:32 | NUR ---
PT EATING BREAKFAST.
--- NOTE | 2019-11-29 09:52 | NUR ---
NO CHANGES TO RACW SITE.
--- NOTE | 2019-11-29 10:27 | NUR ---
NO CHANGES TO RACW [facility] CATH SITE
--- NOTE | 2019-11-29 11:13 | NUR ---
NO CHANGES TO [facility] CATH SITE.
--- NOTE | 2019-11-29 11:42 | NUR ---
[facility] HERE TO TRANSPORT PT, IV REMOVED-CANNULA INTACT. PT AND SO REPORT RECEIVING DISCHARGE INSTRUCTIONS AND VERBALIZE UNDERSTANDING. PT LEFT FACILITY VIA [facility], CONDITION STABLE.
[2019-12-01] MEDS ORDERED: Daily Multiple1 EACH PO (18:21)
[2019-12-01] MEDS ORDERED: CALC.25 PO (20:21)
== END 2019-11-29 11:45 | disposition home or self-care (01) ==
LOC: MHTC 07:26
DX: E11.22 Type 2 diabetes mellitus with diabetic chronic kidney disease (principal); N18.6 End stage renal disease; I50.9 Heart failure, unspecified; E78.5 Hyperlipidemia, unspecified; J44.9 Chronic obstructive pulmonary disease, unspecified; F32.9 Major depressive disorder, single episode, unspecified; Z87.891 Personal history of nicotine dependence; Z88.1 Allergy status to other antibiotic agents; Z88.8 Allergy status to other drugs, medicaments and biological substances; Z79.899 Other long term (current) drug therapy; Z79.01 Long term (current) use of anticoagulants; E66.9 Obesity, unspecified; I48.91 Unspecified atrial fibrillation; D63.1 Anemia in chronic kidney disease; C90.00 Multiple myeloma not having achieved remission
CPT/HCPCS: 36558; 76937; 99152; C1750; C1769; C1894; J1644; J2250; J3010; J7030; J7040

== ENCOUNTER → 2019-11-30 | Outpatient (CLI) | payer OTHER ==
[~2019-11-30] MED LIST changes: +CALC.25 PO; +Daily Multiple1 EACH PO; +FLUT1DIS8 INH; +PROAIR RESPICL90 MCG INH; +VITAMIN D31000 UNI1 PO; +Ventolin5 MG/1 ML
[2019-11-30 17:32] LABS: Albumin, Blood 2.9 g/dL (3.4-5.0); Albumin/Globulin Ratio 0.6 (0.8-1.8); Bilirubin, Direct 0.3 mg/dL (0.0-0.3); Bilirubin, Indirect 0.2 mg/dL (0.1-0.7); Bilirubin, Total 0.5 mg/dL (0.1-1.0); Bun/Creatinine Ratio 23.3 (12.0-20.0); Calcium, Blood 8.2 mg/dL (8.5-10.1); Creatinine, Blood 3.77 mg/dL (0.60-1.20); Globulin, Blood 4.6 g/dL (2.2-4.0); Phosphorus, Blood 4.9 mg/dL (2.5-4.9); Potassium, Blood 4.8 mmol/L (3.5-5.5); Total Protein, Blood 7.5 g/dL (6.4-8.2)
== END | disposition home or self-care (01) ==
LOC: LAB HH 14:47
PROVIDERS: Internal Medicine Nephrology
DX: N18.4 Chronic kidney disease, stage 4 (severe) (principal); R94.5 Abnormal results of liver function studies
CPT/HCPCS: 80053; 82248; 84100

== ENCOUNTER → 2019-12-15 | Outpatient (CLI) | payer OTHER ==
[~2019-12-15] MED LIST changes: +ALBU2.5V5 INH; +ALBU2.5V5 NEB; +ALPRAZOLAM0.5 M1 PO; +CIPR750; +DEXA2; +ELIQUIS2.5 MG PO; +LEVOFLOXACIN750 MG PO; +MIDO5; +OXYC1L PO; +PROBIOTIC 1 B1 EACH PO; +REVLIMID2.5 MG PO; +ROXICODONE15 MG PO
[2019-12-15 15:47] LABS: Albumin, Blood 2.8 g/dL (3.4-5.0); Anion Gap 5 mmol/L (6-16); Blood Urea Nitrogen 55 mg/dL (8-24); Bun/Creatinine Ratio 24.3 (12.0-20.0); CO2, Blood 29 mmol/L (21-32); Calcium, Blood 8.4 mg/dL (8.5-10.1); Chloride, Blood 106 mmol/L (98-108); Creatinine, Blood 2.26 mg/dL (0.60-1.20); Glomerular Filtration Rate 31 (60-); Glucose, Blood 116 mg/dL (70-99); Phosphorus, Blood 4.1 mg/dL (2.5-4.9); Potassium, Blood 4.2 mmol/L (3.5-5.5); Sodium, Blood 140 mmol/L (136-145)
== END ==
LOC: LAB 14:58 → LAB SHORT 14:58
PROVIDERS: Internal Medicine Nephrology
DX: N18.3 Chronic kidney disease, stage 3 (moderate) (principal); D63.1 Anemia in chronic kidney disease
CPT/HCPCS: 80069; 85018

== ENCOUNTER 2020-01-11 17:02 | Observation (INO) | payer OTHER ==
[~2020-01-11] VITALS: Ht 182.9 cm; Wt 106.0 kg
[~2020-01-11 17:02] MED LIST changes: -ALBU2.5V5 INH; -ALBU2.5V5 NEB; -ALPRAZOLAM0.5 M1 PO; -ATOR40TA PO; -BASAGLAR K100 UNIT/1 SC; -CALC.25 PO; -CIPR750; -ELIQUIS2.5 MG PO; -FLUT1DIS8 INH; -METO25ER PO; -MIDO5; -OXYC10TA19 PO; -OXYC1L PO; -PROAIR RESPICL90 MCG INH; -PROBIOTIC 1 B1 EACH PO; -REVLIMID2.5 MG PO; -ROXICODONE15 MG PO; -TRAZ150T57 PO; -VITAMIN D31000 UNI1 PO
[2020-01-11 18:11] LABS: BASOPHILS ABSOLUTE AUTO 0.02 K/mm3 (0.00-0.23); BASOPHILS PERCENT AUTO 0 % (0-2); EOSINOPHILS ABSOLUTE AUTO 0.35 K/mm3 (0.00-0.68); EOSINOPHILS PERCENT AUTO 3 % (0-6); Hematocrit 18.2 % (37.0-53.0); IMMATURE GRAN ABSOLUTE AUTO 0.09 K/mm3 (0.00-0.10); IMMATURE GRAN PERCENT AUTO 1 % (0-1); LYMPHOCYTES ABSOLUTE AUTO 2.36 K/mm3 (0.84-5.20); LYMPHOCYTES PERCENT AUTO 22 % (21-46); MONOCYTES ABSOLUTE AUTO 0.56 K/mm3 (0.16-1.47); MONOCYTES PERCENT AUTO 5 % (4-13); Mean Corpuscular HGB 28.4 pg (26.0-34.0); Mean Corpuscular HGB Conc 29.7 g/dL (31.5-36.5); Mean Corpuscular Volume 96 fL (80-100); Mean Platelet Volume 12.7 fL (9.1-12.4); NEUTROPHILS ABSOLUTE AUTO 7.49 K/mm3 (1.96-9.15); NEUTROPHILS PERCENT AUTO 69 % (41-73); Platelet Count 177 K/mm3 (150-400); RDW Coefficient Variation 23.9 % (11.7-14.2); RDW Standard Deviation 77.2 fL (35.1-46.3); White Blood Cell Count 10.87 K/mm3 (4.00-11.30)
[2020-01-11 18:14] LABS: Hemoglobin 5.4 g/dL (13.5-17.5)
[2020-01-11 18:26] LABS: Albumin/Globulin Ratio 0.7 (0.8-1.8); Bilirubin, Total 1.1 mg/dL (0.1-1.0); Bun/Creatinine Ratio 22.9 (12.0-20.0); Calcium, Blood 8.6 mg/dL (8.5-10.1); Creatinine, Blood 1.92 mg/dL (0.60-1.20); Globulin, Blood 4.1 g/dL (2.2-4.0); Potassium, Blood 4.4 mmol/L (3.5-5.5); Total Protein, Blood 7.1 g/dL (6.4-8.2)
[2020-01-11] MEDS ORDERED: OXYC10TA19 PO (19:08)
[2020-01-11 19:10] LABS: International Normalized Ratio 1.07; Prothrombin Time Results 11.4 Sec (9.7-11.5)
[2020-01-11] MEDS ORDERED: ALPRAZOLAM0.5 M1 PO (19:10)
[2020-01-11] MEDS ORDERED: METO25ER PO (19:40)
[2020-01-11] MEDS ORDERED: BASAGLAR K100 UNIT/1 SC (19:40)
[2020-01-11] MEDS ORDERED: TRAZ150T57 PO (19:40)
[2020-01-11] MEDS ORDERED: DULO60 PO (19:40)
[2020-01-11] MEDS ORDERED: ELIQUIS2.5 MG PO (19:40)
[2020-01-11] MEDS ORDERED: ATOR40TA PO (19:41)
[2020-01-11] MEDS ORDERED: PROAIR RESPICL90 MCG INH (19:41)
[2020-01-11] MEDS ORDERED: GABA300 PO ×2 (19:41→19:50)
[2020-01-11] MEDS ORDERED: FLUT1DIS8 INH (19:42)
[2020-01-11] MEDS ORDERED: LISI5 PO (19:43)
[2020-01-11] MEDS ORDERED: AMLO5 PO (19:43)
[2020-01-11] MEDS ORDERED: CLON.5 PO (19:43)
[2020-01-11] MEDS ORDERED: ALBU2.5V5 NEB (19:45)
[2020-01-11] MEDS ORDERED: VITAMIN D31000 UNI1 PO (19:45)
[2020-01-11] MEDS ORDERED: REVLIMID2.5 MG PO (19:47)
[2020-01-11] MEDS ORDERED: CALC.25 PO (20:08)
[2020-01-11 23:17] LABS: Source, Urine Catheter
[2020-01-11 23:22] LABS: Bilirubin, Urine Neg (Neg); Blood, Urine 5+ (Neg); Glucose Qualitative, Urine Neg (Neg); Ketones, Urine Neg (Neg); Leukocyte Esterase, Urine 1+ (Neg); Nitrite, Urine Neg (Neg); Protein, Urine 2+ (Neg); Urobilinogen, Urine NORM (Normal)
[2020-01-11 23:27] LABS: Appearance, Urine Hazy (Clear); Color, Urine Yellow (P-Yellow)
[2020-01-11 23:28] LABS: Amorphous Light (0-Heavy); Bacteria Few /hpf; Squamous Epithelial Cells Rare /hpf (Few); White Blood Cells, Urine 0-2 /hpf (0-5)
--- NOTE | 2020-01-11 23:32 | NUR ---
PCU ADMIT PT BROUGHT TO PCU-07 BY MEHRDAD FROM ER. PT SLID OVER FROM [facility] TO PCU BED BY 4 STAFF MEMBERS W/ PT REPORT OF BEING NONAMBULATORY & BEDRIDDEN FOR MONTHS. PT A&O X4. VSS. 1ST UNIT PRBC's INFUSING UPON ARRIVAL TO UNIT. TELEMETRY PLACED ON PT, SHOWING AFIB, HR 60's-70's. SPO2 98-100% ON 3L NC W/ PT REPORT OF NORMALLY WEARING 4L NC AT HOME. DIALYSIS PORT NOTED TO R UPPER CHEST WALL. PT DENIES HAVING DIALYSIS RECENTLY, STATING LAST DIALYSIS TREATMENT APPOXIMATELY 1 MONTH AGO. CHRONIC ESTEBAN CATH IN PLACE W/ PT REPORT OF BEING CHANGED BY CAREGIVER 2 WKS AGO. NEW ESTEBAN CATH INSERTED & UA SENT. PT BUTTOCKS NOTED TO BE PURPLE/RED W/ PT COMPLAINING "MY BUTT IS SORE." PT MEDICATED W/ PRN MEDICATION PER EMAR/ PT REQUEST. PT IN BED W/ CALL LIGHT IN REACH. PT TO BE REPOSITIONED Q2H. WILL CONTINUE TO MONITOR & PROVIDE CARE.
[2020-01-12 04:17] LABS: Hematocrit 21.9 % (37.0-53.0); Hemoglobin 6.7 g/dL (13.5-17.5); Mean Corpuscular HGB Conc 30.6 g/dL (31.5-36.5); Mean Corpuscular Volume 92 fL (80-100); Mean Platelet Volume 11.2 fL (9.1-12.4); Platelet Count 171 K/mm3 (150-400); RDW Coefficient Variation 23.4 % (11.7-14.2); RDW Standard Deviation 73.2 fL (35.1-46.3); Red Blood Cell Count 2.39 M/mm3 (4.30-5.90); White Blood Cell Count 10.21 K/mm3 (4.00-11.30)
[2020-01-12 05:00] LABS: Bun/Creatinine Ratio 21.1 (12.0-20.0); Calcium, Blood 8.4 mg/dL (8.5-10.1); Creatinine, Blood 1.9 mg/dL (0.60-1.20)
--- NOTE | 2020-01-12 05:45 | NUR ---
HGB / CALL TO 2 U PRBC's GIVEN THIS SHIFT W/ CALL TO MD DELACRUZ TO REPORT HGB OF 6.7 THIS AM AFTER BLOOD GIVEN. ORDER FROM TO TRANSFUSE 1 ADDITIONAL UNIT OF PRBC's.
--- NOTE | 2020-01-12 06:32 | NUR ---
SHIFT SUMMARY PT A&O X4. VSS. PT CRYING OUT, C/O "BUTT" PAIN, MEDICATED PER EMAR/PT REQUEST X2 THIS SHIFT. SKIN TO BUTTOCKS/COCCYX PURPLE/RED W/ CREAM HEAVILY APPLIED AND DRIED ON PRIOR TO ADMIT. ATTEMPT TO CLEAN SKIN FOR WOUND PHOTO, BUT UNABLE TO REMOVE ALL OF CREAM, AND CAMERA UNABLE TO TAKE PHOTO. WOUND PHOTO NEEDED. PT REPORTS PRESSURE ULCER PRESENT TO [facility] FOR "A YEAR OR SOMETHING." PT BEDBOUND, REPORTING TRAVELING TO [facility]IALYS[facility]. Q2H REPOSITIONING W/ PILLOWS PROVIDED W/ MORE FREQUENT TURNS D/T PT DISCOMFORT. PT REPORTS PAIN IMPROVING STATING "I CAN WATCH TV W/OUT YELLING. THAT'S PRETTY GOOD." PT REQUESTING "HURRY UP AND GET THAT BLOOD IN ME SO I CAN GO." PT STATES GETTING 3 UNITS OF BLOOD LAST TIME IN HOSPITAL, AND STATES HE WILL GO HOME AFTER THIS 3RD UNIT. PT EDUCATED ON NEED TO REASSESS BLOOD LEVELS AFTER UNIT COMPLETE & AWAIT FURTHER PLAN/ADVISEMENT BEFORE DISCHARGE. WILL CONTINUE TO MONITOR & PROVIDE CARE UNTIL REPORT OFF TO DAY SHIFT RN.
--- NOTE | 2020-01-12 07:39 | NUR ---
ASSUMED CARE AT 0700, REPORT FROM CHAS KOROMA. SITTING IN HIGH FOWLERS IN BED, A/A/OX4. BLOOD TRANSFUSION INFUSING AT THIS TIME. 02 4L NC CHANGED TO HUMIDIFIED O2 BY RT. PLAN OF CARE REVIEWED FOR DAY, WILL CONTINUE TO MONITOR.
[2020-01-12 11:42] LABS: Hematocrit 24.9 % (37.0-53.0); Hemoglobin 7.7 g/dL (13.5-17.5)
[2020-01-12] MEDS ORDERED: ACET325 PO (13:19)
[2020-01-12] MEDS ORDERED: ALBU2.5V5 INH (13:19)
[2020-01-12] MEDS ORDERED: ROXICODONE15 MG PO (13:21)
[2020-01-12] MEDS ORDERED: LEVO750 PO (13:22)
[2020-01-12] MEDS ORDERED: PROBIOTIC 1 B1 EACH PO (13:23)
--- NOTE | 2020-01-12 13:45 | NUR ---
INCENTIVE SPIROMETER GIVEN AND TEACHING PER ORDERS.
[2020-01-14] MEDS ORDERED: MIDO5 (13:31)
[2020-01-14] MEDS ORDERED: CIPR750 (13:31)
[2020-01-17] MEDS ORDERED: ACET325 PO (10:02)
[2020-01-17] MEDS ORDERED: LORA1 PO (10:02)
[2020-01-17] MEDS ORDERED: OXYC1L PO (10:04)
== END 2020-01-12 14:50 | disposition home or self-care (01) ==
LOC: ER 17:02 → PCU 17:03
PROVIDERS: Emergency Medicine; Family Medicine; Nurse Practitioner Acute Care; ADMIT Internal Medicine
DX: C90.00 Multiple myeloma not having achieved remission (principal); I13.0 Hypertensive heart and chronic kidney disease with heart failure and stage 1 through stage 4 chronic kidney disease, or unspecified chronic kidney disease; I50.32 Chronic diastolic (congestive) heart failure; E11.22 Type 2 diabetes mellitus with diabetic chronic kidney disease; N18.4 Chronic kidney disease, stage 4 (severe); J44.9 Chronic obstructive pulmonary disease, unspecified; E66.9 Obesity, unspecified; G47.33 Obstructive sleep apnea (adult) (pediatric); I48.20 Chronic atrial fibrillation, unspecified; Z99.81 Dependence on supplemental oxygen; Z99.89 Dependence on other enabling machines and devices; Z79.01 Long term (current) use of anticoagulants; I27.20 Pulmonary hypertension, unspecified; N25.81 Secondary hyperparathyroidism of renal origin; D63.1 Anemia in chronic kidney disease; E78.5 Hyperlipidemia, unspecified; Z96.0 Presence of urogenital implants; Z88.5 Allergy status to narcotic agent; Z88.1 Allergy status to other antibiotic agents; Z79.899 Other long term (current) drug therapy; Z87.891 Personal history of nicotine dependence; L89.159 Pressure ulcer of sacral region, unspecified stage; Z79.4 Long term (current) use of insulin; Z68.32 Body mass index [BMI] 32.0-32.9, adult; J98.11 Atelectasis
CPT/HCPCS: 36415; 36430; 51702; 71045; 80048; 80053; 80069; 81001; 82947; 85014; 85018; 85025; 85027; 85610; 85730; 86850; 86900; 86901; 86923; 87086; 87106; 93005; 93010; 99285-25; A9270; A9270-GY; G0378; J7030; J7040; P9016